=== PATIENT | female | born 1985 | race Hispanic/Latino ===

== ENCOUNTER 2016-11-10 19:05 | Emergency (ER) | payer SELFPAY ==
[~2016-11-10] VITALS: Ht 154.9 cm; Wt 79.4 kg
[~2016-11-10 19:05] MED LIST: ALBU8.5H4 IH; AMOX500C2 PO; ANTI-DEPRESSANT; CEPH500C PO; CIPR-225 PO; FLUO10CA19 PO; HYOS0.1216 PO; HYOS0.1283 SL; METR500T PO; MYLANTA; NITR-65 PO; ONDA-42 SL; ONDA4TAB8 PO; PHEN200T27 PO; PRD20T PO; PREN1TAB39; SULF1TAB38 PO; TYLENOL
[2016-11-10 19:30] LABS: BILIRUBIN,URINE NEGATIVE (NEGATIVE); KETONES,URINE NEGATIVE (NEGATIVE); LEUKOCYTE ESTERASE ,URINE 1+ (NEGATIVE); NITRITE,URINE NEGATIVE (NEGATIVE); PH,URINE 7 (5-9); PROTEIN,URINE NEGATIVE (NEGATIVE); UROBILINOGEN,URINE NORMAL (NORMAL)
[2016-11-10 19:38] LABS: WBC,URINE 0-2 /HPF
--- NOTE | 2016-11-10 19:51 | ED GU-Female ---
General Chief Complaint: -Female Stated Complaint: ABDOMINAL PAIN Nursing Triage Note: c/o lower abdominal pain, possible uti sx. Nursing Sepsis Screen: No Definite Risk Source: patient Exam Limitations: no limitations History of Present Illness Time seen by provider: 19:51 Initial Comments Vlk-wfwb-swz female patient presents to the emergency department with complaints of lower abdominal pain radiating into the bilateral back. Patient reports worse with standing up from a sitting position. Worse with defecation. States she thought maybe she had a urinary tract infection. When defecating patient feels like "my intestines are going to fall out." Denies bowel or bladder incontinence. Timing/Duration: this afternoon, getting worse Severity/Quality: aching, stabbing Location: suprapubic Radiation: RLQ, LLQ, back, right flank, left flank Activities at Onset: none Prior Genitourinary Problems: none Sexual Deseret History: less than 2 months ago, single partner Modifying Factors: Worsens With Movement, Worsens With Palpation Allergies and Home Medications Allergies Coded Allergies: morphine (Unverified Allergy, Mild, ITCHING, 10/09/08) Home Medications Ondansetron 8 Mg Tab.rapdis, 8 MG PO Q6H PRN for NAUSEA/VOMITING-1ST LINE, #10 Ref 0 Prescribed by: ALCIDES DIAZ on 11/10/16 3476 Constitutional: No chills, No fever, No malaise EENTM: no symptoms reported Respiratory: No cough, No phlegm, No short of breath Cardiovascular: No chest pain, No palpitations Gastrointestinal: see HPI, abdominal pain, No constipation, No diarrhea, nausea , No vomiting Genitourinary: see HPI, denies burning, denies dysuria, denies frequency, flank pain, denies hematuria, pain : No Musculoskeletal: see HPI, back pain Skin: no symptoms reported Psychiatric/Neurological: Denies Numbness, Denies Paresthesia, Denies Tingling , Denies Weakness Endocrine: No Symptoms Reported All Other Systemes Reviewed Negative Unless Noted: Yes (Negative excepted noted.) Past Hyoxzpp-Rutnfi-Ovosoy Hx Patient Social History Alcohol Use: Denies Use Recreational Drug Use: No Smoking Status: Never a Smoker 2nd Hand Smoke Exposure: No Recent Foreign Travel: No Contact w/Someone Who Travel: No Recent Infectious Disease Expo: No Recent Hopitalizations: No Immunizations Up To Date Tetanus Booster (TDap): Unknown Seasonal Allergies Seasonal Allergies: No Surgeries History of Surgeries: Yes (GALLBLADDER 2002) Surgeries: Gallbladder, Tubal Ligation Respiratory History of Respiratory Disorde: Yes Respiratory Disorders: Asthma Cardiovascular History of Cardiac Disorders: No Neurological History of Neurological Disord: No Reproductive System : No Hx : 7 Hx Para: 7 Hx Total # of Abortions (Spona: 0 Hx Reproductive Disorders: No Female Reproductive Disorders: Denies 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 Genitourinary History of Genitourinary Disor: Yes Genitourinary Disorders: UTI-Chronic Gastrointestinal History of Gastrointestinal Di: Yes Gastrointestinal Disorders: Gastroesophageal Reflux, Hemorrhoids Musculoskeletal History of Musculoskeletal Dis: No Endocrine History of Endocrine Disorders: No HEENT History of HEENT Disorders: No Cancer History of Cancer: No Psychosocial History of Psychiatric Problem: No Integumentary History of Skin or Integumenta: No Blood Transfusions History of Blood Disorders: No Reviewed Nursing Assessment Reviewed/Agree w Nursing PMH: Yes Family Medical History Significant Family History: No Pertinent Family Hx Physical Exam Vital Signs Capillary Refill : Less Than 3 Seconds General Appearance: WD/WN, no apparent distress HEENT: PERRL/EOMI, pharynx normal Neck: supple, normal inspection Cardiovascular: normal peripheral pulses, regular rate, rhythm, no edema, no murmur Respiratory: chest non-tender, lungs clear, normal breath sounds, no respiratory distress, no accessory muscle use Gastrointestinal: normal bowel sounds, soft, no organomegaly, no pulsatile mass , No distended, guarding (suprapubic, BLQ, bilat flanks), No rebound, tenderness (suprapubic, BLQ, and bilat flanks), No hernia, No mass Back: normal inspection, no CVA tenderness, no vertebral tenderness, No decreased range of motion, muscle spasm (low back muscle spasm with ttp) Extremities: normal inspection, no calf tenderness, normal capillary refill Neurologic/Psychiatric: no motor/sensory deficits, alert, normal mood/affect, oriented x 3 Skin: normal color, warm/dry Progress/Results/Core Measures Results/Orders Lab Results My Orders Vital Signs/I&O Blood Pressure Mean: 93 Point of Care Testing Urine -Bedside: Negative Diagnostic Imaging Diagonstic Imaging: CT Plain Films/CT/US/NM/MRI: abdomen, pelvis Comments FINDINGS: Unenhanced images of the liver and spleen reveal no focal abnormality. The gallbladder is surgically absent. There is no evidence of pancreatic or adrenal gland lesion. Evaluation of the kidneys is limited without intravenous contrast; however, no renal mass or hydronephrosis is identified. There are prominent mesenteric lymph nodes which are most pronounced in the right lower quadrant. These are slightly more conspicuous than on the previous study. There is mild increased density noted in the presacral fat. This could be due to mild edema or inflammation. The endometrial canal appears prominent and may be fluid-filled. Probable cyst is again identified in the left labia measuring 3.9 x 2.5 cm. There is no other organized fluid collection to indicate an abscess. IMPRESSION: Findings are similar to the previous study. Prominent mesenteric lymph nodes may indicate mesenteric adenitis. There is probable edema or fluid within the endometrial canal with persistent cyst in the left labia, as noted on the previous study. Dictated by: Dictated on workstation # [id number] Reviewed: Reviewed by Me (radiology report reviewed by me) Departure Communication (Admissions) Progress Notes All laboratory findings and diagnostic study findings discussed with the patient. Patient refuses pelvic exam during this visit. States she will follow -up with her bean dumper for pelvic exam. I stressed the importance of following through with having a pelvic exam and formal Pap smear done within the next 7-10 days. Patient voices understanding and states she will call tomorrow morning for appointment time. Plan for discharge to home. Patient given prescription for Zofran. All return precautions were discussed with the patient as described in the discharge instructions of this report. Patient voices understanding and agrees with the treatment plan. Impression Impression: Primary Impression: Mesenteric adenitis Additional Impressions: Strain of muscle, fascia and tendon of abdomen, initial encounter Epidermoid cyst of labia majora Disposition: 01 HOME, SELF-CARE Condition: Improved Departure-Patient Inst. Decision time for Depature: 21:52 Referrals: [facility] (PCP/Family) Primary Care Physician Patient Instructions: Abdominal Muscle Strain (DC), Mesenteric Lymphadenitis Add. Discharge Instructions: All discharge instructions reviewed with patient and/or family. Voiced understanding. Medications as instructed. Tylenol extra strength over-the- counter as directed for pain. Ibuprofen 800 mg by mouth every 8 hours as needed for pain. Drink plenty of fluids. Follow-up with your primary care physician within the next 7-10 days for recheck and for pelvic exam/Pap smear. Call tomorrow morning for appointment time. Return to the emergency department immediately for worsened pain, fever, vomiting, rectal bleeding, abdominal swelling, vaginal bleeding with greater than 2 pads per hour for greater than 2 hours, vaginal discharge, numbness, weakness, bowel incontinence, bladder incontinence, inability to urinate, or any other concerns. Scripts Ondansetron (Ondansetron Odt) 8 Mg Tab.rapdis 8 MG PO Q6H Y for NAUSEA/VOMITING-1ST LINE, #10 TAB 0 Refills Prov: ALCIDES DIAZ 11/10/16 Work/School Note: Work Release Form Date Seen in the Emergency Department: Nov 10, 2016 Return to Work: Nov 12, 2016 ALCIDES DIAZ Nov 10, 2016 19:51
[2016-11-10 20:17] LABS: BASOPHILS % (AUTO) 1 % (0-10); EOSINOPHILS # (AUTO) 0.1 10^3/uL (0.0-0.3); EOSINOPHILS % (AUTO) 1 % (0-10); LYMPHOCYTES # (AUTO) 2.1 X 10^3 (1.0-4.0); LYMPHOCYTES % (AUTO) 33 % (12-44); MEAN CORPUSCULAR HEMOGLOBIN 28 PG (25-34); MEAN CORPUSCULAR HGB CONC 33 G/DL (32-36); MEAN CORPUSCULAR VOLUME 84 FL (80-99); MONOCYTES # (AUTO) 0.4 X 10^3 (0.0-1.0); MONOCYTES % (AUTO) 7 % (0-12); NEUTROPHILS # (AUTO) 3.9 X 10^3 (1.8-7.8); NEUTROPHILS % (AUTO) 59 % (42-75); PLATELET COUNT 251 10^3/uL (130-400); RED BLOOD COUNT 4.23 10^6/uL (4.35-5.85); RED CELL DISTRIBUTION WIDTH 13.8 % (10.0-14.5); WHITE BLOOD COUNT 6.5 10^3/uL (4.3-11.0)
[2016-11-10 20:38] LABS: ALANINE AMINOTRANSFERASE 19 U/L (0-55); ALBUMIN 3.9 GM/DL (3.2-4.5); ANION GAP 8 MMOL/L (5-14); ASPARTATE AMINO TRANSFERASE 18 U/L (5-34); BILIRUBIN,TOTAL 0.3 MG/DL (0.1-1.0); BLOOD UREA NITROGEN 10 MG/DL (7-18); BUN/CREATININE RATIO 15; CALCIUM 8.9 MG/DL (8.5-10.1); CARBON DIOXIDE 27 MMOL/L (21-32); CHLORIDE 103 MMOL/L (98-107); CREATININE SERUM 0.66 MG/DL (0.60-1.30); GFR ESTIMATED > 60; GLUCOSE 95 MG/DL (70-105); LIPASE 45 U/L (8-78); POTASSIUM 3.7 MMOL/L (3.6-5.0); SODIUM 138 MMOL/L (135-145); TOTAL PROTEIN 7.1 GM/DL (6.4-8.2)
--- NOTE | 2016-11-10 21:00 | Diagnostic Imaging Report ---
PROCEDURE: CT abdomen and pelvis without contrast. TECHNIQUE: Multiple contiguous axial images were obtained through the abdomen and pelvis without the use of intravenous contrast. INDICATION: Lower abdominal pain. COMPARISON is made to study of 07/20/2015. FINDINGS: Unenhanced images of the liver and spleen reveal no focal abnormality. The gallbladder is surgically absent. There is no evidence of pancreatic or adrenal gland lesion. Evaluation of the kidneys is limited without intravenous contrast; however, no renal mass or hydronephrosis is identified. There are prominent mesenteric lymph nodes which are most pronounced in the right lower quadrant. These are slightly more conspicuous than on the previous study. There is mild increased density noted in the presacral fat. This could be due to mild edema or inflammation. The endometrial canal appears prominent and may be fluid-filled. Probable cyst is again identified in the left labia measuring 3.9 x 2.5 cm. There is no other organized fluid collection to indicate an abscess. IMPRESSION: Findings are similar to the previous study. Prominent mesenteric lymph nodes may indicate mesenteric adenitis. There is probable edema or fluid within the endometrial canal with persistent cyst in the left labia, as noted on the previous study. Dictated by: Dictated on workstation # [id number]
[2016-11-10] MEDS ORDERED: ONDA8TAB13 PO (21:53)
[2016-11-10 21:59] VITALS: BP 114/61
--- OUTSIDE RECORDS SUMMARY | 2016-11-11 04:22 | XMS REPORT ---
Author Author JOEY PETERSON Organization [employer] Address Unknown Phone Unavailable Care Team Providers Care Apron Worker Name Role Phone JOEY PETERSON CP Unavailable Allergies No Known Allergies Problems Problem Type Condition Code Onset Dates Condition Status Problem Unspecified asthma J45.909 Active Problem Gastritis, unspecified, without bleeding K29.70 Active Problem Dermatophytosis of foot B35.3 Active Problem Chest pain R07.9 Active Problem Anxiety associated with depression F41.8 Active Problem Routine health maintenance Z00.00 Active Problem Post-traumatic stress disorder, chronic F43.12 Active Problem Pruritus ani L29.0 Active Problem Enlarged lymph node in neck R59.0 Active Problem Bipolar II disorder F31.81 Active Problem Claustrophobia F40.240 Active Problem Cyst of Bartholin gland or duct N75.0 Active Assessment Abnormal ultrasound of breast R92.8 Active Problem Unspecified hemorrhoids K64.9 Active Assessment Mammogram reminder not needed forever Z53.8 Active Problem Nonspecific abdominal pain R10.9 Active Medications No Known Medications Results No Known Results Summary Purpose [employer] Submission
--- OUTSIDE RECORDS SUMMARY | 2016-11-11 04:22 | XMS REPORT ---
Author Author NICOLETTE NEELY [facility] e[employer] Address Unknown Phone Unavailable Care Team Providers Care Valet Runner Name Role Phone NICOLETTE NEELY CP Unavailable Allergies, Adverse Reactions, Alerts Substance Reaction Event Type Morphine Info Not Available Drug Allergy Problems Problem Type Condition Code Onset Dates Condition Status Problem Screening for malignant neoplasm of the cervix V76.2 Active Problem Abdominal pain, unspecified site 789.00 Active Problem Unspecified hemorrhoids without mention of complication 455.6 Active Problem Post-traumatic stress disorder, chronic F43.12 Active Problem Pruritus ani 698.0 Active Problem Bipolar II disorder F31.81 Active Problem Encounter for long-term (current) use of other medications V58.69 Active Problem Asthma, unspecified, unspecified status 493.90 Active Problem Unspecified gastritis and gastroduodenitis without mention of hemorrhage 535.50 Active Problem Dermatophytosis of foot 110.4 Active Assessment Post-traumatic stress disorder, chronic F43.12 Active Problem Unspecified breast screening V76.10 Active Problem Routine gynecological examination V72.31 Active Assessment Bipolar II disorder F31.81 Active Problem Special screening examination, human papillomavirus [HPV] V73.81 Active Problem Cyst of Bartholin's gland 616.2 Active Problem Screening examination for venereal disease V74.5 Active Medications Medication Code System Code Instructions Start Date End Date Status Dosage Effexor XR [facility] [address]-88 37.5 MG Orally Once a day Jan 04, 2015 1 capsule with food Procedures Procedure Coding System Code Date Psych diagnostic evaluation w/medical services, established patient CPT-4 40117 Jan 04, 2015 Vital Signs Date/Time: Jan 04, 2015 Temperature 98.8 F Weight 175.8 lbs Height 62 in BMI 32.15 Index Blood Pressure Diastolic 78 mmHg Blood Pressure Systolic 104 mmHg Cardiac Monitoring Heart Rate 100 bpm Results No Known Results Summary Purpose [employer] Submission
--- OUTSIDE RECORDS SUMMARY | 2016-11-11 04:22 | XMS REPORT ---
Author Author NICHOLAS JOEY Organization [facility] [place] Address [address] [place] [address] Care Team Providers Care Mathematics Faculty Member Name Role Phone PETERSONJOEY Rice Unavailable PROBLEMS Type Condition ICD9-CM Code [id number] Code Onset Dates Condition Status SNOMED Code Problem Bipolar II disorder F31.81 Active 53045424 Problem Routine health maintenance Z00.00 Active 586157050 Problem Enlarged lymph node in neck R59.0 Active 61637277 Problem Abnormal uterine bleeding N93.9 Active 76542700274840 Problem Irregular periods/menstrual cycles N92.6 Active 30176000 Problem Chest pain R07.9 Active 15662262 Problem Anxiety associated with depression F41.8 Active 871334056 Problem H. pylori infection A04.8 Active 8261814 Problem Tonsillar hypertrophy J35.1 Active 18283388 Problem Nonspecific abdominal pain R10.9 Active 248055125 Problem Unspecified asthma J45.909 Active 132988780 Problem Cyst of Bartholin gland or duct N75.0 Active 60267598 Problem Dermatophytosis of foot B35.3 Active 2491246 Problem Pruritus ani L29.0 Active 91378206 Problem Unspecified hemorrhoids K64.9 Active 23874851 Problem Elevated hemoglobin A1c measurement R73.09 Active 874183677 Problem Gastritis, unspecified, without bleeding K29.70 Active 3610127 Problem Claustrophobia F40.240 Active 47203513 Problem Post-traumatic stress disorder, chronic F43.12 Active 06117756 ALLERGIES No Known Allergies SOCIAL HISTORY No smoking Hx information available PLAN OF CARE VITAL SIGNS MEDICATIONS Unknown Medications RESULTS Name Result Date Reference Range LIPID PANEL 2016-03-20 Cholesterol, Total 193 100-199 Triglycerides 301 0-149 HDL Cholesterol 39 >39 VLDL Cholesterol Yuri 60 5-40 LDL Cholesterol Calc 94 0-99 Comment: PROCEDURES Procedure Date Ordered Related Diagnosis Body Site LIPID PANEL Mar 20, 2016 VENIPUNCT, ROUTINE* Mar 20, 2016 IMMUNIZATIONS No Known Immunizations
--- OUTSIDE RECORDS SUMMARY | 2016-11-11 04:22 | XMS REPORT ---
Author Author ELLIOT ROSENBAUM [facility] [employer] Address Unknown Phone Unavailable Care Team Providers Care Stator Winder Name Role Phone ELLIOT ROSENBAUM CP Unavailable Allergies No Known Allergies Problems [...] Active Problem Bipolar II disorder F31.81 Active Assessment Abnormal ultrasound of breast R92.8 Active Problem Cyst of Bartholin gland or duct N75.0 Active Problem Unspecified hemorrhoids K64.9 Active Problem Nonspecific abdominal pain R10.9 Active Medications No Known Medications Results No Known Results Summary Purpose [employer] Submission
--- OUTSIDE RECORDS SUMMARY | 2016-11-11 04:22 | XMS REPORT ---
Author Author CASEY PATEL Organization [employer] Address Unknown Phone Unavailable Care Team Providers Care Site Controller Name Role Phone CASEY PATEL CP Unavailable Allergies No Known Allergies Problems [...] Problem Bipolar II disorder F31.81 Active Assessment Claustrophobia F40.240 Active Problem Claustrophobia F40.240 Active Problem Cyst of Bartholin gland or duct N75.0 Active Assessment Post-traumatic stress disorder, chronic F43.12 Active Problem Unspecified hemorrhoids K64.9 Active Assessment Bipolar II disorder F31.81 Active Problem Nonspecific abdominal pain R10.9 Active Medications No Known Medications Procedures Procedure Coding System Code Date Psychotherapy, patient &/family, 45 minutes, established patient CPT-4 30493 October 09, 2015 Results No Known Results Summary Purpose [employer] Submission
--- OUTSIDE RECORDS SUMMARY | 2016-11-11 04:22 | XMS REPORT ---
Author Author NICOLETTE NEELY [facility] [employer] Address Unknown Phone Unavailable Care Team Providers Care Stores Assistant Name Role Phone NICOLETTE NEELY CP Unavailable Allergies No Known Allergies Problems [...] Active Problem Dermatophytosis of foot 110.4 Active Problem Unspecified breast screening V76.10 Active Problem Routine gynecological examination V72.31 Active Problem Special screening examination, human papillomavirus [HPV] V73.81 Active Problem Cyst of Bartholin's gland 616.2 Active Problem Screening examination for venereal disease V74.5 Active Medications Medication Code System Code Instructions Start Date End Date Status Dosage Effexor XR [facility] [address]-42 37.5 MG Orally Once a day Jan 04, 2015 1 capsule with food Results No Known Results Summary Purpose [employer] Submission
--- OUTSIDE RECORDS SUMMARY | 2016-11-11 04:23 | XMS REPORT ---
Author Author JOEY PETERSON Organization [facility] Address [address] [place] [address] Care Team Providers Care Optimization Manager Name Role Phone JOEY PETERSON Unavailable PROBLEMS Type Condition ICD9-CM Code HUL43-[place] Code Onset Dates Condition Status SNOMED Code Problem Bipolar II disorder F31.81 Active 56055776 Problem Routine health maintenance Z00.00 Active 922614597 Problem Enlarged lymph node in neck R59.0 Active 06093790 Problem Abnormal uterine bleeding N93.9 Active 81956722770888 Problem Irregular periods/menstrual cycles N92.6 Active 73858620 Problem Chest pain R07.9 Active 15488739 Problem Anxiety associated with depression F41.8 Active 876563743 Problem H. pylori infection A04.8 Active 9270234 Problem Tonsillar hypertrophy J35.1 Active 62775351 Problem Nonspecific abdominal pain R10.9 Active 841778931 Problem Unspecified asthma J45.909 Active 265158760 Problem Cyst of Bartholin gland or duct N75.0 Active 54619243 Problem Dermatophytosis of foot B35.3 Active 4233415 Problem Pruritus ani L29.0 Active 14374593 Problem Unspecified hemorrhoids K64.9 Active 33393105 Problem Elevated hemoglobin A1c measurement R73.09 Active 084622173 Problem Gastritis, unspecified, without bleeding K29.70 Active 0474465 Problem Claustrophobia F40.240 Active 40520353 Problem Post-traumatic stress disorder, chronic F43.12 Active 22848208 ALLERGIES No Known Allergies SOCIAL HISTORY No smoking Hx information available PLAN OF CARE VITAL SIGNS MEDICATIONS Medication Instructions Dosage Frequency Start Date End Date Duration Status Fenofibrate 54 MG Orally Once a day 1 tablet with a meal 24h Mar, 90 days Active RESULTS No Results PROCEDURES No Known procedures IMMUNIZATIONS No Known Immunizations
--- OUTSIDE RECORDS SUMMARY | 2016-11-11 04:23 | XMS REPORT ---
Author Author JOEY PETERSON Organization [facility] Address [address] [place] [address] Care Team Providers Care Sheriff Officer Name Role Phone JOEY PETERSON Unavailable PROBLEMS Type Condition ICD9-CM Code [id number] Code Onset Dates Condition Status SNOMED Code Problem Bipolar II disorder F31.81 Active 96472664 Problem Anxiety associated with depression F41.8 Active 133093582 Problem Enlarged lymph node in neck R59.0 Active 80418471 Problem Abnormal uterine bleeding N93.9 Active 88424057584646 Problem Irregular periods/menstrual cycles N92.6 Active 30065569 Problem Routine health maintenance Z00.00 Active 399647092 Problem Chest pain R07.9 Active 99379554 Problem Tonsillar hypertrophy J35.1 Active 49664136 Problem H. pylori infection A04.8 Active 0458706 Problem Cyst of Bartholin gland or duct N75.0 Active 50625370 Problem Unspecified hemorrhoids K64.9 Active 47468710 Problem Elevated hemoglobin A1c measurement R73.09 Active 794365278 Problem Claustrophobia F40.240 Active 80965383 Problem Dermatophytosis of foot B35.3 Active 6908835 Problem Gastritis, unspecified, without bleeding K29.70 Active 8818041 Problem Nonspecific abdominal pain R10.9 Active 523107566 Problem Pruritus ani L29.0 Active 98596407 Problem Unspecified asthma J45.909 Active 261997120 Problem Post-traumatic stress disorder, chronic F43.12 Active 58172296 ALLERGIES Substance Reaction Event Type Date Status Morphine Unknown Drug Allergy Feb, Active SOCIAL HISTORY No smoking Hx information available PLAN OF CARE Activity Details Follow Up 4 Weeks Reason:f/u VITAL SIGNS Height 62 in 2016-02-28 Weight 182.2 lbs 2016-02-28 Temperature 97.7 degrees Fahrenheit 2016-02-28 Heart Rate 77 bpm 2016-02-28 Respiratory Rate 18 2016-02-28 BMI 33.32 kg/m2 2016-02-28 Blood pressure systolic 128 mmHg 2016-02-28 Blood pressure diastolic 82 mmHg 2016-02-28 MEDICATIONS Medication Instructions Dosage Frequency Start Date End Date Duration Status Omeprazole 20 mg Orally 2 times a day 1 capsules 12h Feb, Active Clarithromycin 500 MG Orally every 12 hrs 1 tablet 12h Feb,Feb 14 days Active Amoxicillin 500 MG Orally every 12 hrs 2 capsules 12h Feb,Feb 14 days Active RESULTS Name Result Date Reference Range H PYLORI (IN HOUSE) 2016-02-28 H. PYLORI positive Control + Lot # [id number] Exp date 12/29 PROCEDURES Procedure Date Ordered Related Diagnosis Body Site IMMUNOASSAY,INFECTIOUS AGENT Feb 28, 2016 Office Visit, Est Pt., Level 3 Feb 28, 2016 IMMUNIZATIONS No Known Immunizations
--- OUTSIDE RECORDS SUMMARY | 2016-11-11 04:23 | XMS REPORT ---
Author Author CARRINGTON FLORES Organization [employer] Address Unknown Phone Unavailable Care Team Providers Care Clinical Informatics Spec Name Role Phone CARRINGTON FLORES Unavailable Allergies, Adverse Reactions, Alerts Substance Reaction Event Type Morphine Info Not Available Drug Allergy Problems Problem Type Condition Code Onset Dates Condition Status Assessment Breast pain N64.4 Active Problem Unspecified hemorrhoids K64.9 Active Problem Cyst of Bartholin gland or duct N75.0 Active Assessment Lymph node enlargement R59.9 Active Assessment Rectal bleeding K62.5 Active Problem Post-traumatic stress disorder, chronic F43.12 Active Problem Pruritus ani L29.0 Active Problem Bipolar II disorder F31.81 Active Problem Unspecified asthma J45.909 Active Problem Nonspecific abdominal pain R10.9 Active Problem Gastritis, unspecified, without bleeding K29.70 Active Problem Dermatophytosis of foot B35.3 Active Medications Medication Code System Code Instructions Start Date End Date Status Dosage Effexor XR [facility] [address]-91 37.5 MG Orally Once a day Jan 04, 2015 1 capsule with food Procedures Procedure Coding System Code Date COMPREHEN METABOLIC PANEL CPT-4 42677 Apr 03, 2015 Office Visit, Est Pt., Level 3 CPT-4 34122 Apr 03, 2015 COMPLETE CBC W/AUTO DIFF WBC CPT-4 64779 Apr 03, 2015 VENIPUNCT, ROUTINE* CPT-4 93190 Apr 03, 2015 Vital Signs Date/Time: Apr 03, 2015 Temperature 98.0 F Weight 172.5 lbs Height 62 in BMI 31.55 Index Blood Pressure Diastolic 76 mmHg Blood Pressure Systolic 110 mmHg Cardiac Monitoring Heart Rate 72 bpm Results Name Result Date Reference Range Unit Abnormality Flag ROUTINE VENIPUNCTURE Summary Purpose [employer]ClinicalWorks Submission
--- OUTSIDE RECORDS SUMMARY | 2016-11-11 04:23 | XMS REPORT ---
Author Author CASEY PATEL Organization [employer] Address Unknown Phone Unavailable Care Team Providers Care Applications Support Analyst Name Role Phone CASEY PATEL CP Unavailable [...] patient &/family, 45 minutes, established patient CPT-4 83486 September 25, 2015 Results No Known Results Summary Purpose [employer] Submission
--- OUTSIDE RECORDS SUMMARY | 2016-11-11 04:23 | XMS REPORT ---
Author Author JEFFREY BENNETT eClinicalWorks Address Unknown Phone Unavailable Care Team Providers Care Network Technology Instructor Name Role Phone JEFFREY BENNETT CP Unavailable Allergies, Adverse Reactions, Alerts Substance Reaction Event Type Morphine Info Not Available Drug Allergy Problems Problem Type Condition Code Onset Dates Condition Status Assessment Dental examination Z01.20 Active Problem Unspecified hemorrhoids K64.9 Active Problem Cyst of Bartholin gland or duct N75.0 Active Assessment Dental caries K02.9 Active Problem Post-traumatic stress disorder, chronic F43.12 Active Problem Pruritus ani L29.0 Active Problem Bipolar II disorder F31.81 Active Problem Unspecified asthma J45.909 Active Problem Nonspecific abdominal pain R10.9 Active Problem Gastritis, unspecified, without bleeding K29.70 Active Problem Dermatophytosis of foot B35.3 Active Medications No Known Medications Procedures Procedure Coding System Code Date INTRAORL-PERIAPICAL 1 FILM 74751 CPT-4 D0220 Apr 05, 2015 EXTRAC ERUPTED TOOTH/EXPOSED ROOT CPT-4 D7140 Apr 05, 2015 LTD ORAL EVALUATION - PROBLEM FOCUS CPT-4 D0140 Apr 05, 2015 EXTRAC ERUPTED TOOTH/EXPOSED ROOT CPT-4 D7140 Apr 05, 2015 Vital Signs Date/Time: Apr 05, 2015 Blood Pressure Diastolic 81 mmHg Blood Pressure Systolic 114 mmHg Height 62 in Results No Known Results Summary Purpose eClinicalWorks Submission
--- OUTSIDE RECORDS SUMMARY | 2016-11-11 04:23 | XMS REPORT ---
Author Author MAYO JAIME [facility] eClinicalWorks Address Unknown Phone Unavailable Care Team Providers Care Master Automotive Technician Name Role Phone MAYO JAIME CP Unavailable Allergies No Known Allergies Problems Problem Type Condition ICD-9 Code Onset Dates Condition Status Problem Special screening examination, human papillomavirus [HPV] V73.81 Active Problem Screening for malignant neoplasm of the cervix V76.2 Active Problem Screening examination for venereal disease V74.5 Active Problem Unspecified gastritis and gastroduodenitis without mention of hemorrhage 535.50 Active Problem Dermatophytosis of foot 110.4 Active Problem Pruritus ani 698.0 Active Problem Abdominal pain, unspecified site 789.00 Active Problem Unspecified hemorrhoids without mention of complication 455.6 Active Problem Encounter for long-term (current) use of other medications V58.69 Active Problem Asthma, unspecified, unspecified status 493.90 Active Assessment Dental examination V72.2 Active Problem Cyst of Bartholin's gland 616.2 Active Problem Unspecified breast screening V76.10 Active Problem Routine gynecological examination V72.31 Active Medications No Known Medications Procedures Procedure Coding System Code Date Billing Notes on claim CPT-4 EC109 August 08, 2014 Results No Known Results Summary Purpose eClinicalWorks Submission
--- OUTSIDE RECORDS SUMMARY | 2016-11-11 04:23 | XMS REPORT ---
Author Author MAYO JAIME [facility] eClinicalWorks Address Unknown Phone Unavailable Care Team Providers Care Cigar Packer And Picker Name Role Phone MAYO JAIME CP Unavailable Allergies, Adverse Reactions, Alerts Substance [...] N75.0 Active Problem Unspecified hemorrhoids K64.9 Active Assessment Dental examination Z01.20 Active Problem Nonspecific abdominal pain R10.9 Active Medications No Known Medications Procedures Procedure Coding System Code Date Dental no charge CPT-4 D0099 September 30, 2015 Results No Known Results Summary Purpose eClinicalWorks Submission
--- OUTSIDE RECORDS SUMMARY | 2016-11-11 04:23 | XMS REPORT ---
Author Author JOEY PETERSON Organization [facility] Address [address] [place] [address] Care Team Providers Care Anthropology Professor Name Role Phone NICHOLAS JOEY Unavailable PROBLEMS Type Condition ICD9-CM Code ENM36-LU Code Onset Dates Condition Status SNOMED Code Problem Post-traumatic stress disorder, chronic F43.12 Active 70189228 Problem Enlarged lymph node in neck R59.0 Active 27943665 Problem Bipolar II disorder F31.81 Active 17416953 Problem Irregular periods/menstrual cycles N92.6 Active 45694108 Problem Tonsillar hypertrophy J35.1 Active 67547672 Problem Chest pain R07.9 Active 75043645 Problem Anxiety associated with depression F41.8 Active 014469526 Problem H. pylori infection A04.8 Active 1597554 Problem Routine health maintenance Z00.00 Active 129454508 Problem Claustrophobia F40.240 Active 26234996 Problem Cyst of Bartholin gland or duct N75.0 Active 08927117 Problem Elevated hemoglobin A1c measurement R73.09 Active 804772698 Problem Unspecified asthma J45.909 Active 045057191 Problem Dermatophytosis of foot B35.3 Active 6631433 Problem Unspecified hemorrhoids K64.9 Active 74442216 Problem Gastritis, unspecified, without bleeding K29.70 Active 9634481 Problem Nonspecific abdominal pain R10.9 Active 692278778 Problem Pruritus ani L29.0 Active 52927875 ALLERGIES Unknown Allergies SOCIAL HISTORY No smoking Hx information available PLAN OF CARE VITAL SIGNS MEDICATIONS Medication Instructions Dosage Frequency Start Date End Date Duration Status Levaquin 250 MG Orally twice a day 1 tablet 12h Feb, 2 Mar, 2016 14 days Active Omeprazole 20 mg Orally 2 times a day 1 capsules 12h 16 Feb, 2016 Active RESULTS No Results PROCEDURES No Known procedures IMMUNIZATIONS No Known Immunizations
--- OUTSIDE RECORDS SUMMARY | 2016-11-11 04:23 | XMS REPORT ---
Author Author CASEY PATEL [facility] eClinicalWorks Address Unknown Phone Unavailable Care Team Providers Care Third Mate Name Role Phone CASEY PATEL CP Unavailable [...] examination for venereal disease V74.5 Active Medications No Known Medications Procedures Procedure Coding System Code Date Psychotherapy, patient &/family, 45 minutes, established patient CPT-4 89061 Jan 08, 2015 Results No Known Results Summary Purpose eClinicalWorks Submission
--- OUTSIDE RECORDS SUMMARY | 2016-11-11 04:23 | XMS REPORT ---
Author Author CASEY PATEL [facility] eClinicalWorks Address Unknown Phone Unavailable Care Team Providers Care Back Shoe Cutter Name Role Phone CASEY PATEL CP Unavailable [...] patient &/family, 45 minutes, established patient CPT-4 32181 Jan 02, 2015 Results No Known Results Summary Purpose eClinicalWorks Submission
== END 2016-11-10 21:58 | disposition home or self-care (01) ==
LOC: EDUNIT# 19:05 → ER 19:09
DX: S39.011A Strain of muscle, fascia and tendon of abdomen, initial encounter (principal); I88.0 Nonspecific mesenteric lymphadenitis; N90.7 Vulvar cyst; J45.909 Unspecified asthma, uncomplicated; K21.9 Gastro-esophageal reflux disease without esophagitis; Z87.440 Personal history of urinary (tract) infections; Z87.19 Personal history of other diseases of the digestive system; Z98.51 Tubal ligation status; X58.XXXA Exposure to other specified factors, initial encounter
CPT/HCPCS: 36415; 74176; 80053; 81000; 83690; 84703; 85025

== ENCOUNTER 2017-02-07 17:08 | Emergency (ER) | payer SELFPAY ==
[~2017-02-07] VITALS: Ht 154.9 cm; Wt 79.4 kg
[~2017-02-07 17:08] MED LIST changes: +ONDA8TAB13 PO
--- OUTSIDE RECORDS SUMMARY | 2017-02-07 17:14 | XMS REPORT ---
Author Author JOEY PETERSON Organization [facility] Address [address] [place] [address] Care Team Providers Care Concrete Vault Maker Name Role Phone JOEY PETERSON Unavailable PROBLEMS Type Condition ICD9-CM Code IHR26-CL Code Onset Dates Condition Status SNOMED Code Problem Anxiety associated with depression F41.8 Active 587566263 Problem Routine health maintenance Z00.00 Active 395879456 Problem Enlarged lymph node in neck R59.0 Active 69701583 Problem Hypertriglyceridemia E78.1 Active 415973773 Problem Cyst of Bartholin gland or duct N75.0 Active 46635391 Problem GERD without esophagitis K21.9 Active 409749818 Problem Elevated hemoglobin A1c measurement R73.09 Active 504886513 Problem H. pylori infection A04.8 Active 7048794 Problem Tonsillar hypertrophy J35.1 Active 04034719 Problem Abnormal uterine bleeding N93.9 Active 23772818533807 Problem Irregular periods/menstrual cycles N92.6 Active 90843325 Problem Unspecified asthma J45.909 Active 668806364 Problem Claustrophobia F40.240 Active 36321697 Problem Dermatophytosis of foot B35.3 Active 3452976 Problem Nonspecific abdominal pain R10.9 Active 607567906 Problem Gastritis, unspecified, without bleeding K29.70 Active 7481720 Problem Post-traumatic stress disorder, chronic F43.12 Active 37746281 Problem Pruritus ani L29.0 Active 12839347 Problem Bipolar II disorder F31.81 Active 57662798 Problem Unspecified hemorrhoids K64.9 Active 12625691 Problem Chest pain R07.9 Active 21511004 ALLERGIES No Information SOCIAL HISTORY Never Assessed PLAN OF CARE Activity Details Follow Up 3 Months, prn Reason:CHM VITAL SIGNS Height 62 in 2016-07-23 Weight 178.6 lbs 2016-07-23 Temperature 97.0 degrees Fahrenheit 2016-07-23 Heart Rate 78 bpm 2016-07-23 Respiratory Rate 20 2016-07-23 BMI 32.66 kg/m2 2016-07-23 Blood pressure systolic 112 mmHg 2016-07-23 Blood pressure diastolic 76 mmHg 2016-07-23 MEDICATIONS Medication Instructions Dosage Frequency Start Date End Date Duration Status Ibuprofen 500ng Orally every 4-6 hours as needed 1 capsule Active Omeprazole 20 mg Orally 2 times a day 1 capsules 12h 16 Feb, 2016 Active Fenofibrate 54 MG Orally Once a day 1 tablet with a meal 24h Mar, 90 days Active RESULTS Name Result Date Reference Range UA LONG DIP (IN HOUSE) 2016-07-23 Lot # [id number] Exp date Clarity Clear Color DarkYellow Odor Yes GLU Negative MARINA Negative KET Negative SG 1.020 BLO Trace-intact pH 7.0 Protein 1+ URO 0.2 NIT Negative BEVERLY Negative Lot # Exp date THYROID ANALYZER 2016-07-23 TSH 1.740 0.450-4.500 A1C 2016-07-23 Hemoglobin A1c 5.9 4.8-5.6 CBC 2016-07-23 WBC 5.5 3.4-10.8 RBC 4.21 3.77-5.28 Hemoglobin 11.6 11.1-15.9 Hematocrit 34.7 34.0-46.6 MCV 82 79-97 MCH 27.6 26.6-33.0 MCHC 33.4 31.5-35.7 RDW 14.8 12.3-15.4 Platelets 282 150-379 Neutrophils 56 Lymphs 35 Monocytes 6 Eos 2 Basos 1 Neutrophils (Absolute) 3.1 1.4-7.0 Lymphs (Absolute) 1.9 0.7-3.1 Monocytes(Absolute) 0.3 0.1-0.9 Eos (Absolute) 0.1 0.0-0.4 Baso (Absolute) 0.0 0.0-0.2 Immature Granulocytes 0 Immature Grans (Abs) 0.0 0.0-0.1 CMP 2016-07-23 Glucose, Serum 98 65-99 BUN 10 6-20 Creatinine, Serum 0.40 0.57-1.00 eGFR If NonAfricn Am 138 >59 eGFR If Africn Am 159 >59 BUN/Creatinine Ratio 25 9-23 Sodium, Serum 140 134-144 Potassium, Serum 4.0 3.5-5.2 Chloride, Serum 101 96-106 Carbon Dioxide, Total 26 18-29 Calcium, Serum 9.0 8.7-10.2 Protein, Total, Serum 7.2 6.0-8.5 Albumin, Serum 4.0 3.5-5.5 Globulin, Total 3.2 1.5-4.5 A/G Ratio 1.3 1.2-2.2 Bilirubin, Total 0.2 0.0-1.2 Alkaline Phosphatase, S 68 39-117 AST (SGOT) 16 0-40 ALT (SGPT) 20 0-32 PROCEDURES Procedure Date Ordered Result Body Site COMPLETE CBC W/AUTO DIFF WBC July 23, 2016 GLYCATED HEMOGLOBIN TEST July 23, 2016 VENIPUNCT, ROUTINE* July 23, 2016 ASSAY THYROID STIM HORMONE July 23, 2016 COMPREHEN METABOLIC PANEL July 23, 2016 URINALYSIS, AUTO, W/O SCOPE July 23, 2016 IMMUNIZATIONS No Known Immunizations MEDICAL (GENERAL) HISTORY Type Description Date Medical History constipation Surgical History Gallbladder removal Surgical History Cyst removal Surgical History Tubal ligation 2010 Hospitalization History Surgeries Hospitalization History Suicide attempt 2008
[2017-02-07] MEDS ORDERED: D5 NS 1000 ML IV SOLUTION 1,000 ML IV ONE (17:42)
--- NOTE | 2017-02-07 17:49 | ED Abdominal Pain ---
General Chief Complaint: Abdominal/GI Problems Stated Complaint: STOMACH PAIN/DIARRHEA/DIZZINESS Source of Information: Patient, Family Exam Limitations: No Limitations (JUAQUIN STONE) History of Present Illness Time Seen By Provider: 17:38 Initial Comments Patient presents to ER by private conveyance with chief complaint that approximately 8 days ago she began experiencing copious watery nonbloody diarrhea. She also had some abdominal pain after eating anything. This will on for about 4 days she Began to get better but it did not. He does not matter what she ate it causes pain in her abdomen especially the right lower quadrant and then diarrhea. He says she had a bowel movement however she says the pain got better. She took some Imodium from [id number] and this helped slow the diarrhea so now is only intermittent. She still having the pain and sometimes nausea that accompanies right after eating. She has had her gallbladder removed surgically. She also has a history of a bilateral tubal ligation. She went to work today but because of the pain she was not able to stay at work so she came to the ER to get worked up. She's had some chills but no documented fever. She has not vomited yet. She says she's had problems in the past with her bowels having copious loose stools but denies irritable bowel or inflammatory bowel disease. She says she had a colonoscopy several years ago and was told everything was normal. She sees Pura Reyes but has not seen her recently. She denies any chest pain, shortness of breath, cough, dysuria, discharge. She also feels very tired all the time and weak for the past several days. She denies any sick contacts or recent travel outside of the [facility]. Last menstrual period started 5-6 days ago. She says it's stopped last night. (JUAQUIN STONE) Allergies and Home Medications Allergies Coded Allergies: morphine (Unverified Allergy, Mild, ITCHING, 10/09/08) Home Medications Ondansetron 8 Mg Tab.rapdis, 8 MG PO Q6H PRN for NAUSEA/VOMITING-1ST LINE, #10 Ref 0 Prescribed by: ALCIDES DIAZ on 11/10/16 3334 Review of Systems Constitutional: chills, No fever, malaise, weakness EENTM: No Blurred Vision, No Double Vision Respiratory: Denies Cough, Denies Shortness of Air Cardiovascular: Denies Chest Pain, Denies Lightheadedness, Denies Palpitations , Denies Syncope Gastrointestinal: Denies Constipated, Denies Diarrhea, Nausea, Poor Appetite, Poor Fluid Intake, Denies Vomiting Genitourinary: Denies Burning, Denies Discharge, Denies Pain Musculoskeletal: No joint pain, No joint swelling Skin: No pruritus, No rash (JUAQUIN STONE) Past Vltpdic-Kislbp-Foxqad Hx Patient Social History Alcohol Use: Denies Use Recreational Drug Use: No Smoking Status: Never a Smoker 2nd Hand Smoke Exposure: No Recent Foreign Travel: No Contact w/Someone Who Travel: No Recent Hopitalizations: No (JUAQUIN STONE) Immunizations Up To Date Tetanus Booster (TDap): Unknown (JUAQUIN STONE) Seasonal Allergies Seasonal Allergies: No (JUAQUIN STONE) Surgeries History of Surgeries: Yes (GALLBLADDER 2001) Surgeries: Gallbladder, Tubal Ligation (JUAQUIN STONE) Respiratory History of Respiratory Disorde: Yes Respiratory Disorders: Asthma (JUAQUIN STONE) Cardiovascular History of Cardiac Disorders: No (JUAQUIN STONE) Neurological History of Neurological Disord: No (JUAQUIN STONE) Reproductive System Hx Reproductive Disorders: No Female Reproductive Disorders: Denies LAW ENFORCEMENT OFFICER History: Tubal Ligation (JUAQUIN STONE) Genitourinary History of Genitourinary Disor: Yes Genitourinary Disorders: UTI-Chronic (JUAQUIN STONE) Gastrointestinal History of Gastrointestinal Di: Yes Gastrointestinal Disorders: Gastroesophageal Reflux, Hemorrhoids (JUAQUIN STONE) Musculoskeletal History of Musculoskeletal Dis: No (JUAQUIN STONE) Endocrine History of Endocrine Disorders: No (JUAQUIN STONE) HEENT History of HEENT Disorders: No (JUAQUIN STONE) Cancer History of Cancer: No (JUAQUIN STONE) Psychosocial History of Psychiatric Problem: No (JUAQUIN STONE) Integumentary History of Skin or Integumenta: No (JUAQUIN STONE) Blood Transfusions History of Blood Disorders: No (JUAQUIN STONE) Family Medical History Significant Family History: No Pertinent Family Hx (JUAQUIN STONE) Physical Exam Vital Signs VS - Last 72 Hours, by Label 02/07/17 17:52 Temp 97.2 Pulse 90 Resp 16 B/P (MAP) 127/92 Pulse Ox 97 (RADHA MCGARRY MD) Vital Signs Capillary Refill : (JUAQUIN STONE) General Appearance: WD/WN, mild distress HEENT: PERRL/EOMI, pharynx normal (oral mucosa is mildly dry.) Respiratory: chest non-tender, lungs clear, normal breath sounds Cardiovascular: normal peripheral pulses, regular rate, rhythm, no edema Peripheral Pulses: 2+ Radial Pulses (R), 2+ Radial Pulses (L) Gastrointestinal: normal bowel sounds, soft, no organomegaly, tenderness (she has tenderness in the left lower quadrant to palpation as well as suprapubic. She also has tenderness in the right lower quadrant near McBurney's point but no rebound tenderness. Most of her tenderness however it is felt whenever I palpate the upper right quadrant and she does appear to have Dawson's sign with halting of her breath due to pain on deep inspiration.), other Extremities: normal range of motion, normal inspection, no pedal edema, normal capillary refill Neurologic/Psychiatric: alert, normal mood/affect, oriented x 3 Skin: normal color, warm/dry (JUAQUIN STONE) Progress/Results/Core Measures Results/Orders Lab Results Laboratory Tests Test 02/07/17 17:35 02/07/17 17:46 Range/Units Urine Color YELLOW Urine Clarity CLEAR Urine pH 7 5-9 Urine Specific [place] 1.015 L 1.016-1.022 Urine Protein 1+ H NEGATIVE Urine Glucose (UA) NEGATIVE NEGATIVE Urine Ketones NEGATIVE NEGATIVE Urine Nitrite NEGATIVE NEGATIVE Urine Bilirubin NEGATIVE NEGATIVE Urine Urobilinogen NORMAL NORMAL MG/DL Urine Leukocyte Esterase 1+ H NEGATIVE Urine RBC (Auto) 5+ H NEGATIVE Urine RBC 10-25 H /HPF Urine WBC 0-2 /HPF Urine Squamous Epithelial Cells 25-50 H /HPF Urine Crystals NONE /LPF Urine Bacteria TRACE /HPF Urine Casts NONE /LPF Urine Mucus NEGATIVE /LPF Urine Culture Indicated NO Urine Test NEGATIVE NEGATIVE Urine Opiates Screen NEGATIVE NEGATIVE Urine Oxycodone Screen NEGATIVE NEGATIVE Urine Methadone Screen NEGATIVE NEGATIVE Urine Propoxyphene Screen NEGATIVE NEGATIVE Urine Barbiturates Screen NEGATIVE NEGATIVE Ur Tricyclic Antidepressants Screen NEGATIVE NEGATIVE Urine Phencyclidine Screen NEGATIVE NEGATIVE Urine Amphetamines Screen NEGATIVE NEGATIVE Urine Methamphetamines Screen NEGATIVE NEGATIVE Urine Benzodiazepines Screen NEGATIVE NEGATIVE Urine Cocaine Screen NEGATIVE NEGATIVE Urine Cannabinoids Screen NEGATIVE NEGATIVE White Blood Count 6.3 4.3-11.0 10^3/uL Red Blood Count 4.36 4.35-5.85 10^6/uL Hemoglobin 12.4 11.5-16.0 G/DL Hematocrit 37 35-52 % Mean Corpuscular Volume 84 80-99 FL Mean Corpuscular Hemoglobin 28 25-34 PG Mean Corpuscular Hemoglobin Concent 34 32-36 G/DL Red Cell Distribution Width 13.3 10.0-14.5 % Platelet Count 268 130-400 10^3/uL Mean Platelet Volume 9.7 7.4-10.4 FL Neutrophils (%) (Auto) 58 42-75 % Lymphocytes (%) (Auto) 33 12-44 % Monocytes (%) (Auto) 7 0-12 % Eosinophils (%) (Auto) 2 0-10 % Basophils (%) (Auto) 1 0-10 % Neutrophils # (Auto) 3.6 1.8-7.8 X 10^3 Lymphocytes # (Auto) 2.1 1.0-4.0 X 10^3 Monocytes # (Auto) 0.4 0.0-1.0 X 10^3 Eosinophils # (Auto) 0.1 0.0-0.3 10^3/uL Basophils # (Auto) 0.0 0.0-0.1 10^3/uL Sodium Level 138 135-145 MMOL/L Potassium Level 3.9 3.6-5.0 MMOL/L Chloride Level 106 98-107 MMOL/L Carbon Dioxide Level 24 21-32 MMOL/L Anion Gap 8 5-14 MMOL/L Blood Urea Nitrogen 11 7-18 MG/DL Creatinine 0.60 0.60-1.30 MG/DL Estimat Glomerular Filtration Rate > 60 BUN/Creatinine Ratio 18 Glucose Level 94 70-105 MG/DL Calcium Level 8.8 8.5-10.1 MG/DL Magnesium Level 1.8 1.8-2.4 MG/DL Total Bilirubin 0.3 0.1-1.0 MG/DL Aspartate Amino Transf (AST/SGOT) 25 5-34 U/L Alanine Aminotransferase (ALT/SGPT) 31 0-55 U/L Alkaline Phosphatase 62 40-136 U/L Total Protein 7.7 6.4-8.2 GM/DL Albumin 4.1 3.2-4.5 GM/DL Lipase 44 8-78 U/L (RADHA MCGARRY MD) Medications Given in ED Current Medications Medications Dose Ordered Sig/See Route Start Time Stop Time Status Last Admin Dose Admin Dextrose/Sodium Chloride 1,000 ml @ 0 mls/hr Q0M ONCE IV 02/07/17 17:42 02/07/17 17:44 DC 02/07/17 18:19 0 MLS/HR Iohexol 100 ml ONCE ONCE IV 02/07/17 18:00 02/07/17 18:01 UNV 02/07/17 18:28 100 ML Sodium Chloride 100 ml ONCE ONCE IV 02/07/17 18:00 02/07/17 18:01 UNV 02/07/17 18:28 80 ML (RADHA MCGARRY MD) Vital Signs/I&O Vital Sign - Last 12Hours 02/07/17 17:52 Temp 97.2 Pulse 90 Resp 16 B/P (MAP) 127/92 Pulse Ox 97 (RADHA MCGARRY MD) Progress Note #1: Time: 17:50 Progress Note We'll give her some IV fluids to resuscitate her and her recent week of diarrhea. Check electrolytes as well as a white blood cell count. She's had her gallbladder out however there is other pathology that could be going on her right upper quadrant that could explain her symptoms so we'll check a lipase and if we don't find anything acutely we'll get a CT scan of her belly with contrast. Barring any other pathology she should follow-up with a traffic engineering director to consider endoscopy and further management. Irritable bowel versus inflammatory bowel or still within the differential however this is fairly acute and certainly lead her to at least some level of mild to moderate dehydration. Patient is declining pain meds at this time stating she does not like how they make her feel. She rates her pain as moderate to severe. She is not having any nausea presently. Progress Note #2: Time: 18:20 Progress Note The blood seen and UA may be explained by her recent menstrual. (JUAQUIN STONE) Progress Note : Progress Note 0: CT results complete. Fluids nearly complete. Patient is doing okay. No significant pain currently. I did discuss results of CT scan as well as concerns of once this. Does have history of Bartholin's cyst and she will follow up with her creative designer. She is instructed to follow-up with her primary doctor for referral to a surgeon for possible upper lower endoscopy as well as further evaluation as needed. Discharged home with return precautions. Patient verbalize understanding instructions and agreement with plan. (RADHA MCGARRY MD) Diagnostic Imaging Diagonstic Imaging: CT Plain Films/CT/US/NM/MRI: abdomen, pelvis Reviewed: Reviewed by Me (JUAQUIN STONE) Comments NAME: MARISSA MILTON [facility] REC#: [id number] PT STATUS: REG ER : 1985 PHYSICIAN: JUAQUIN STONE MD ADMIT DATE: 02/07/17/ER Draft Date of Exam:02/07/17 CT ABDOMEN/PELVIS W PROCEDURE: CT abdomen and pelvis with contrast. TECHNIQUE: Multiple contiguous axial images were obtained through the abdomen and pelvis after administration of intravenous contrast. INDICATION: Abdominal pain. Nausea and vomiting. COMPARISON: 11/10/2016. FINDINGS: Included portions of the lung bases are clear. CT ABDOMEN: Descending colon is decompressed. Normal appendix cannot be adequately identified, but there is no pericecal inflammation. Small bowel loops are nondistended. The kidneys, adrenal glands, spleen, pancreas and liver have a normal CTA appearance. There is no loculated fluid collection, free fluid or free air within the abdomen. A few prominent appearing, yet subcentimeter, mesenteric lymph nodes are noted. No abnormal retroperitoneal adenopathy is identified. Bony structures show no acute abnormality. CT PELVIS: Urinary bladder is grossly unremarkable. There is no loculated fluid collection, free fluid or free air within the pelvis. No abnormal lymph nodes are seen. Bony structures show no acute abnormality. There does appear to be a large left-sided Bartholin cyst that measures 4.7 x 3.1 cm. IMPRESSION: 1. Few scattered prominent-appearing, yet subcentimeter, mesenteric lymph nodes within the abdomen. Findings are nonspecific, but can be seen with underlying mesenteric panniculitis/adenitis. 2. Otherwise, no acute abnormalities within the abdomen or pelvis. 3. Large left-sided Bartholin cyst. Dictated on workstation # [id number] Dict: 02/07/17 1853 Trans: 02/07/17 190 [facility] [id number] Interpreted by: AMAURI CURRY MD Electronically signed by: (RADHA MCGARRY MD) Transfer of Care Transfer of Care Time: 18:21 Care transferred to: JUAQUIN BURNS) Departure Impression Impression: Primary Impression: Generalized abdominal pain Additional Impression: Bartholin's gland cyst Disposition: 01 HOME, SELF-CARE Condition: Improved Departure-Patient Inst. Decision time for Depature: 19:14 (RADHA MCGARRY MD) Referrals: [facility] (PCP/Family) Primary Care Physician Patient Instructions: Acute Abdomen (Belly Pain), Adult (DC), Bartholin's Gland Cyst Add. Discharge Instructions: All discharge instructions reviewed with patient and/or family. Voiced understanding. Clear liquid or light diet for the next 24-48 hours and then advance as tolerated. Drink plenty of fluids. Follow-up with your Dr. in a few days for recheck. You should discuss with your doctor about referral for surgical evaluation for upper and lower endoscopy (scope) as indicated. Follow-up with her creative designer regarding the Bartholin's gland cyst. Return for worse pain, fever, vomiting, weakness, breathing problems or other concerns as needed. Copy Copies To 1: ELLIOT ROSENBAUM TITUS J Feb 07, 2017 17:49 RADHA MCGARRY MD Feb 07, 2017 19:16
[2017-02-07 17:56] LABS: BASOPHILS % (AUTO) 1 % (0-10); EOSINOPHILS # (AUTO) 0.1 10^3/uL (0.0-0.3); EOSINOPHILS % (AUTO) 2 % (0-10); LYMPHOCYTES # (AUTO) 2.1 X 10^3 (1.0-4.0); LYMPHOCYTES % (AUTO) 33 % (12-44); MEAN CORPUSCULAR HEMOGLOBIN 28 PG (25-34); MEAN CORPUSCULAR HGB CONC 34 G/DL (32-36); MEAN CORPUSCULAR VOLUME 84 FL (80-99); MEAN PLATELET VOLUME 9.7 FL (7.4-10.4); MONOCYTES # (AUTO) 0.4 X 10^3 (0.0-1.0); MONOCYTES % (AUTO) 7 % (0-12); NEUTROPHILS # (AUTO) 3.6 X 10^3 (1.8-7.8); NEUTROPHILS % (AUTO) 58 % (42-75); PLATELET COUNT 268 10^3/uL (130-400); RED BLOOD COUNT 4.36 10^6/uL (4.35-5.85); RED CELL DISTRIBUTION WIDTH 13.3 % (10.0-14.5); WHITE BLOOD COUNT 6.3 10^3/uL (4.3-11.0)
[2017-02-07] MEDS ORDERED: NS 100 ML (IVPB) BAG IV ONE (18:00)
[2017-02-07] MEDS ORDERED: IOHEXOL 350 MG/ML 100 ML (OMNIPAQUE 350) VIAL IV ONE (18:00)
[2017-02-07 18:01] LABS: BILIRUBIN,URINE NEGATIVE (NEGATIVE); NITRITE,URINE NEGATIVE (NEGATIVE); PH,URINE 7 (5-9); UROBILINOGEN,URINE NORMAL (NORMAL)
[2017-02-07 18:03] LABS: KETONES,URINE NEGATIVE (NEGATIVE); LEUKOCYTE ESTERASE ,URINE 1+ (NEGATIVE); PROTEIN,URINE 1+ (NEGATIVE)
[2017-02-07 18:12] LABS: SQUAMOUS EPITHELIAL CELL,UR 25-50 /HPF; WBC,URINE 0-2 /HPF
[2017-02-07 18:13] LABS: ALANINE AMINOTRANSFERASE 31 U/L (0-55); ALBUMIN 4.1 GM/DL (3.2-4.5); ANION GAP 8 MMOL/L (5-14); ASPARTATE AMINO TRANSFERASE 25 U/L (5-34); BILIRUBIN,TOTAL 0.3 MG/DL (0.1-1.0); BLOOD UREA NITROGEN 11 MG/DL (7-18); BUN/CREATININE RATIO 18; CALCIUM 8.8 MG/DL (8.5-10.1); CARBON DIOXIDE 24 MMOL/L (21-32); CHLORIDE 106 MMOL/L (98-107); GFR ESTIMATED > 60; GLUCOSE 94 MG/DL (70-105); LIPASE 44 U/L (8-78); MAGNESIUM 1.8 MG/DL (1.8-2.4); POTASSIUM 3.9 MMOL/L (3.6-5.0); SODIUM 138 MMOL/L (135-145); TOTAL PROTEIN 7.7 GM/DL (6.4-8.2)
--- NOTE | 2017-02-07 19:05 | Diagnostic Imaging Report ---
PROCEDURE: CT abdomen and pelvis with contrast. TECHNIQUE: Multiple contiguous axial images were obtained through the abdomen and pelvis after administration of intravenous contrast. INDICATION: Abdominal pain. Nausea and vomiting. COMPARISON: 11/10/2016. FINDINGS: Included portions of the lung bases are clear. CT ABDOMEN: Descending colon is decompressed. Normal appendix cannot be adequately identified, but there is no pericecal inflammation. Small bowel loops are nondistended. The kidneys, adrenal glands, spleen, pancreas and liver have a normal CTA appearance. There is no loculated fluid collection, free fluid or free air within the abdomen. A few prominent appearing, yet subcentimeter, mesenteric lymph nodes are noted. No abnormal retroperitoneal adenopathy is identified. Bony structures show no acute abnormality. CT PELVIS: Urinary bladder is grossly unremarkable. There is no loculated fluid collection, free fluid or free air within the pelvis. No abnormal lymph nodes are seen. Bony structures show no acute abnormality. There does appear to be a large left-sided Bartholin cyst that measures 4.7 x 3.1 cm. IMPRESSION: 1. Few scattered prominent-appearing, yet subcentimeter, mesenteric lymph nodes within the abdomen. Findings are nonspecific, but can be seen with underlying mesenteric panniculitis/adenitis. 2. Otherwise, no acute abnormalities within the abdomen or pelvis. 3. Large left-sided Bartholin cyst. Dictated by: Dictated on workstation # [id number]
[2017-02-07 19:23] VITALS: BP 116/81
== END 2017-02-07 19:23 | disposition home or self-care (01) ==
LOC: EDUNIT# 17:08 → ER 17:10
DX: N75.0 Cyst of Bartholin's gland (principal); K21.9 Gastro-esophageal reflux disease without esophagitis; J45.909 Unspecified asthma, uncomplicated; Z98.51 Tubal ligation status
CPT/HCPCS: 36415; 74177; 80053; 80306; 81000; 83690; 83735; 84703; 85025

== ENCOUNTER 2020-10-02 17:39 | Emergency (ER) | payer MEDICAID, OTHER ==
[~2020-10-02] VITALS: Ht 157.4 cm; Wt 82.5 kg
--- NOTE | 2020-10-02 17:53 | ED Abdominal Pain ---
General Stated Complaint: BACK PAIN, SIDE PAIN Source of Information: Patient History of Present Illness Date Seen by Provider: Oct 02, 2020 Time Seen by Provider: 17:49 Initial Comments PT ARRIVES VIA POV FROM HOME C/O LLQ PAIN X 2 WEEKS NOW STARTING TO RADIATE TO LEFT FLANK PAIN IS WORSE WITH BENDING OVER + NAUSEA, NO VOMITING. NO DIARRHEA OR CONSTIPATION. HAD NORMAL BM TODAY NO URINARY SYMPTOMS NO FEVER WAS SEEN AT [facility] ON Wednesday09/27/20 FOR THIS AND AGAIN ON Wednesday09/30/20. PT STATES THE ONLY TEST SHE HAD WAS XRAYS. IS SUPPOSED TO HAVE AN ULTRASOUND NEXT WEDNESDAY AT [facility]. STATES SHE WAS GIVEN A PRESCRIPTION FOR NAUSEA MEDICATION PT TOOK AN ADVIL AND A TYLENOL AT 10 AM TODAY WHILE AT WORK. JUST STARTED WORKING AT [employer] 2 DAYS AGO ATE [place] JUST PRIOR TO ARRIVAL DENIES HISTORY OF SIMILAR LMP 2 WEEKS AGO, NORMAL. HAS HAD BTL HAS ALSO HAD CHOLECYSTECTOMY NO CHRONIC MEDICAL PROBLEMS, NO PRIOR GI PROBLEMS DOES HAVE HISTORY OF UTI'S BUT NO RECENT PROBLEMS PCP:[facility] Allergies and Home Medications Allergies Coded Allergies: morphine (Unverified Allergy, Mild, ITCHING, 10/09/08) Home Medications Ondansetron 8 Mg Tab.rapdis, 8 MG PO Q6H PRN for NAUSEA/VOMITING-1ST LINE Prescribed by: ALCIDES DIAZ on 11/10/162152 Review of Systems Review of Systems Constitutional: no symptoms reported Respiratory: No Symptoms Reported Cardiovascular: No Symptoms Reported Gastrointestinal: See HPI, Abdominal Pain; Denies Constipated, Denies Diarrhea; Nausea; Denies Poor Appetite, Denies Poor Fluid Intake, Denies Vomiting Genitourinary: No Symptoms Reported Musculoskeletal: see HPI, back pain Skin: no symptoms reported Psychiatric/Neurological: No Symptoms Reported Endocrine: No Symptoms Reported Hematologic/Lymphatic: No Symptoms Reported Past Usitnay-Qejryp-Ricugf Hx Patient Social History Tobacco Use?: No Smoking Status: Never a Smoker Smokeless Tobacco Frequency: Never a User Use of E-Cig and/or Vaping dev: No Substance use?: No Alcohol Use?: No Immunizations Up To Date Tetanus Booster (TDap): Unknown Seasonal Allergies Seasonal Allergies: No Past Medical History Surgeries: Yes (GALLBLADDER 2001; LABIAL CYST/ABSCESS I&D) Gallbladder, Tubal Ligation Respiratory: Yes Asthma Cardiac: Yes High Cholesterol Neurological: No Reproductive Disorders: No Female Reproductive Disorders: Denies [employer] History: Tubal Ligation Genitourinary: Yes UTI-Chronic Gastrointestinal: Yes Gastroesophageal Reflux, Hemorrhoids Musculoskeletal: No Endocrine: No HEENT: No Cancer: No Psychosocial: No Integumentary: Yes (LABIAL CYST/ABSCESS I&D) Blood Disorders: No Family Medical History No Pertinent Family Hx Physical Exam Vital Signs Vital Signs - First Documented 10/02/20 18:03 Temp 36.7 Pulse 104 Resp 20 B/P (MAP) 127/88 (101) Pulse Ox 99 Capillary Refill : Height/Weight/BMI Height: 5'1.00" Weight: 175lbs. 0.0oz. 79.336776pq; 33.3 BMI Method:Stated General Appearance: WD/WN, no apparent distress, other (TALKS RAPIDLY, NON- STOP. WALKS UPRIGHT AND MOVES WITHOUT DIFFICULTY. 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 as tested, no motor/sensory deficits, oriented x 3 Skin: normal color (PT IS ), warm/dry; No rash Progress/Results/Core Measures Results/Orders Lab Results Laboratory Tests Test 10/02/20 18:03 10/02/20 18:05 Range/Units White Blood Count 6.0 4.3-11.0 10^3/uL Red Blood Count 3.82 3.80-5.11 10^6/uL Hemoglobin 10.3 L 11.5-16.0 g/dL Hematocrit 31 L 35-52 % Mean Corpuscular Volume 82 80-99 fL Mean Corpuscular Hemoglobin 27 25-34 pg Mean Corpuscular Hemoglobin Concent 33 32-36 g/dL Red Cell Distribution Width 14.7 H 10.0-14.5 % Platelet Count 278 130-400 10^3/uL Mean Platelet Volume 11.1 9.0-12.2 fL Immature Granulocyte % (Auto) 0 % Neutrophils (%) (Auto) 59 42-75 % Lymphocytes (%) (Auto) 32 12-44 % Monocytes (%) (Auto) 6 0-12 % Eosinophils (%) (Auto) 2 0-10 % Basophils (%) (Auto) 1 0-10 % Neutrophils # (Auto) 3.5 1.8-7.8 10^3/uL Lymphocytes # (Auto) 1.9 1.0-4.0 10^3/uL Monocytes # (Auto) 0.4 0.0-1.0 10^3/uL Eosinophils # (Auto) 0.1 0.0-0.3 10^3/uL Basophils # (Auto) 0.0 0.0-0.1 10^3/uL Immature Granulocyte # (Auto) 0.0 0.0-0.1 10^3/uL Percent Immature Platelet Fraction 4.2 0.0-7.6 % Sodium Level 139 135-145 MMOL/L Potassium Level 4.1 3.6-5.0 MMOL/L Chloride Level 107 98-107 MMOL/L Carbon Dioxide Level 19 L 21-32 MMOL/L Anion Gap 13 5-14 MMOL/L Blood Urea Nitrogen 11 7-18 MG/DL Creatinine 0.61 0.60-1.30 MG/DL Estimat Glomerular Filtration Rate 111 BUN/Creatinine Ratio 18 Glucose Level 111 H 70-105 MG/DL Calcium Level 8.5 8.5-10.1 MG/DL Corrected Calcium 8.5 8.5-10.1 MG/DL Total Bilirubin 0.3 0.1-1.0 MG/DL Aspartate Amino Transf (AST/SGOT) 31 5-34 U/L Alanine Aminotransferase (ALT/SGPT) 24 0-55 U/L Alkaline Phosphatase 56 40-136 U/L Total Protein 7.6 6.4-8.2 GM/DL Albumin 4.0 3.2-4.5 GM/DL Amylase Level 64 25-125 U/L Lipase 35 8-78 U/L Urine Color YELLOW Urine Clarity CLEAR Urine pH 7.0 5-9 Urine Specific [place] 1.025 H 1.016-1.022 Urine Protein NEGATIVE NEGATIVE Urine Glucose (UA) NEGATIVE NEGATIVE Urine Ketones NEGATIVE NEGATIVE Urine Nitrite NEGATIVE NEGATIVE Urine Bilirubin NEGATIVE NEGATIVE Urine Urobilinogen 1.0 < = 1.0 MG/DL Urine Leukocyte Esterase NEGATIVE NEGATIVE Urine RBC (Auto) NEGATIVE NEGATIVE Urine RBC NONE /HPF Urine WBC NONE /HPF Urine Squamous Epithelial Cells 10-25 H /HPF Urine Crystals NONE /LPF Urine Bacteria TRACE /HPF Urine Casts NONE /LPF Urine Mucus SMALL H /LPF Urine Culture Indicated NO My Orders Orders - SHANEL MEEK DO Urine Bedside (10/02/20 17:43) Ua Culture If Indicated (10/02/20 17:43) Ed Iv/Invasive Line Start (10/02/20 17:53) Amylase (10/02/20 17:53) Cbc With Automated Diff (10/02/20 17:53) Comprehensive Metabolic Panel (10/02/20 17:53) Lipase (10/02/20 17:53) Abdomen/Kub 1view (10/02/20 18:30) Ct Abd/Pelvis Wo(Kidney Stone) (10/02/20 18:30) Vital Signs/I&O 10/02/20 18:03 Temp 36.7 Pulse 104 Resp 20 B/P (MAP) 127/88 (101) Pulse Ox 99 Progress Progress Note : Progress Note PT DECLINES PAIN MEDICATIONS Diagnostic Imaging Comments CT ABDOMEN/PELVIS--PER RADIOLOGIST REPORT AT 1901 FINDINGS: The lung bases are clear. The gallbladder surgically absent. There is no free air or free fluid. Solid organs, vascular structures and bowel are unremarkable. There are no renal calculi. The appendix is normal. There is trace free fluid in the cul-de-sac, likely physiologic. The uterus is intact. Urinary bladder normal. No hernia seen. There is no inflammation. Osseous structures normal. IMPRESSION: 1. Trace free fluid in the cul-de-sac likely physiologic 2. No renal calculi or hydronephrosis. 3. No bowel obstruction, free air, or free fluid. 4. Surgically absent gallbladder. ABDOMEN XRAYS--PER RADIOLOGIST REPORT AT 1901 FINDINGS: There is some gas in both the large and small bowel in a nonspecific fashion. There has been an increase in the amount of gas in the large and small bowel since the prior CT abdomen/pelvis exam of 02/07/2017. However, there is no evidence for a bowel obstruction. There does appear to be a fair amount of fecal material in the ascending and proximal transverse colon. There is no mass or organomegaly identified. However, there is a small 3.7 mm calcific density low in the pelvis on the left. The CT abdomen/pelvis exam performed on 11/10/2016 did note a few small phleboliths in this region. However, if there is clinical concern regarding an obstructive ureteral calculus on the left, then CT would be recommended for further study. The osseous structures are intact. Surgical clips are again seen overlying the right upper quadrant. IMPRESSION: 1. The bowel gas pattern is nonspecific. There is no acute abnormality identified. 2. The small calcific density low in the pelvis on the left is of uncertain etiology. Considerations and recommendations as above. Reviewed: Reviewed by Me Departure Impression Primary Impression: LLQ abdominal pain Disposition: HOME, SELF-CARE Condition: Stable Departure-Patient Inst. Referrals: [facility] (PCP/Family) Primary Care Physician Patient Instructions: Abdominal Pain, Adult ED Add. Discharge Instructions: TYLENOL 1 GRAM /MOTRIN 800 MG 4 TIMES A DAY NEEDED FOR PAIN TAKE YOUR NAUSEA MEDICATION NEEDED FOLLOW UP WITH [facility] THIS WEEK FOR FURTHER CARE SHANEL MEEK DO Oct 02, 2020 17:53
[2020-10-02 18:08] LABS: MONOCYTES # (AUTO) 0.4 10^3/uL (0.0-1.0)
[2020-10-02 18:10] LABS: BASOPHILS % (AUTO) 1 % (0-10); EOSINOPHILS # (AUTO) 0.1 10^3/uL (0.0-0.3); EOSINOPHILS % (AUTO) 2 % (0-10); HEMATOCRIT 31 % (35-52); HEMOGLOBIN 10.3 g/dL (11.5-16.0); LYMPHOCYTES # (AUTO) 1.9 10^3/uL (1.0-4.0); LYMPHOCYTES % (AUTO) 32 % (12-44); MEAN CORPUSCULAR HEMOGLOBIN 27 pg (25-34); MEAN CORPUSCULAR HGB CONC 33 g/dL (32-36); MEAN CORPUSCULAR VOLUME 82 fL (80-99); MEAN PLATELET VOLUME 11.1 fL (9.0-12.2); MONOCYTES % (AUTO) 6 % (0-12); NEUTROPHILS # (AUTO) 3.5 10^3/uL (1.8-7.8); NEUTROPHILS % (AUTO) 59 % (42-75); PLATELET COUNT 278 10^3/uL (130-400)
[2020-10-02 18:11] LABS: BILIRUBIN,URINE NEGATIVE (NEGATIVE); CLARITY,URINE CLEAR; COLOR,URINE YELLOW; GLUCOSE, URINE (UA) NEGATIVE (NEGATIVE); KETONES,URINE NEGATIVE (NEGATIVE); LEUKOCYTE ESTERASE ,URINE NEGATIVE (NEGATIVE); NITRITE,URINE NEGATIVE (NEGATIVE); PROTEIN,URINE NEGATIVE (NEGATIVE)
[2020-10-02 18:19] LABS: POTASSIUM 4.1 MMOL/L (3.6-5.0)
[2020-10-02 18:19] LABS: BACTERIA,URINE TRACE /HPF
[2020-10-02 18:21] LABS: CALCIUM 8.5 MG/DL (8.5-10.1)
[2020-10-02 18:22] LABS: TOTAL PROTEIN 7.6 GM/DL (6.4-8.2)
[2020-10-02 18:24] LABS: BILIRUBIN,TOTAL 0.3 MG/DL (0.1-1.0)
[2020-10-02 18:25] LABS: CREATININE SERUM 0.61 MG/DL (0.60-1.30)
--- NOTE | 2020-10-02 18:56 | Diagnostic Imaging Report ---
PROCEDURE: CT urinary tract, rule out kidney stone. TECHNIQUE: Multiple contiguous axial images were obtained through the abdomen and pelvis without the use of intravenous contrast. Auto Exposure Controls were utilized during the CT exam to meet ALARA standards for radiation dose reduction. INDICATION: Left-sided abdominal pain, kidney stone COMPARISON: 02/07/2017. FINDINGS: The lung bases are clear. The gallbladder surgically absent. There is no free air or free fluid. Solid organs, vascular structures and bowel are unremarkable. There are no renal calculi. The appendix is normal. There is trace free fluid in the cul-de-sac, likely physiologic. The uterus is intact. Urinary bladder normal. No hernia seen. There is no inflammation. Osseous structures normal. IMPRESSION: 1. Trace free fluid in the cul-de-sac likely physiologic 2. No renal calculi or hydronephrosis. 3. No bowel obstruction, free air, or free fluid. 4. Surgically absent gallbladder. Dictated by: Dictated on workstation # [id number]
--- NOTE | 2020-10-02 18:56 | Diagnostic Imaging Report ---
INDICATION: Supine abdomen at 6:47 PM INDICATION: Left abdominal pain TECHNIQUE: Single supine view was obtained. FINDINGS: There is some gas in both the large and small bowel in a nonspecific fashion. There has been an increase in the amount of gas in the large and small bowel since the prior CT abdomen/pelvis exam of 02/07/2017. However, there is no evidence for a bowel obstruction. There does appear to be a fair amount of fecal material in the ascending and proximal transverse colon. There is no mass or organomegaly identified. However, there is a small 3.7 mm calcific density low in the pelvis on the left. The CT abdomen/pelvis exam performed on 11/10/2016 did note a few small phleboliths in this region. However, if there is clinical concern regarding an obstructive ureteral calculus on the left, then CT would be recommended for further study. The osseous structures are intact. Surgical clips are again seen overlying the right upper quadrant. IMPRESSION: 1. The bowel gas pattern is nonspecific. There is no acute abnormality identified. 2. The small calcific density low in the pelvis on the left is of uncertain etiology. Considerations and recommendations as above. Dictated by: Dictated on workstation # [id number]
[2020-10-02 19:24] VITALS: BP 102/77
== END 2020-10-02 19:24 | disposition home or self-care (01) ==
LOC: EDUNIT# 17:39 → ER 17:43
DX: R10.32 Left lower quadrant pain (principal); J45.909 Unspecified asthma, uncomplicated; Z90.49 Acquired absence of other specified parts of digestive tract
CPT/HCPCS: 36415; 74018; 74176; 80053; 81000; 82150; 83690; 84703; 85025

== ENCOUNTER 2021-03-20 23:37 | Emergency (ER) | payer SELFPAY | END 2021-03-20 23:55 | disposition left against medical advice (07) | LOC: EDUNIT# 23:37 → ER 23:42 | DX: R10.11 Right upper quadrant pain (principal) ==

== ENCOUNTER 2021-05-06 01:37 | Emergency (ER) | payer SELFPAY ==
[2021-05-06 02:10] VITALS: BP 108/80
[2021-05-06] MEDS ORDERED: LACTATED RINGERS 1,000 ML IV STA (02:22)
--- NOTE | 2021-05-06 02:26 | ED GI ---
General Stated Complaint: VOMITING,DIARRHEA,NAUSEA Source of Information: Patient Exam Limitations: No Limitations History of Present Illness Date Seen by Provider: May 06, 2021 Time Seen by Provider: 01:52 Initial Comments 36-year-old female with no significant past medical history coming in due to 1 day of nonbloody nonbilious vomiting and numerous episodes of nonbloody diarrhea with abdominal cramping. Started around 6 AM yesterday morning. Denies any chest pain, shortness of breath, significant abdominal pain that is constant, cough, fever, chills, weakness, numbness, dysuria, urinary frequency, vaginal bleeding, or any other concerns. She had a tubal ligation previously. Had COVID a year ago, is not vaccinated for it. Allergies and Home Medications Allergies Coded Allergies: morphine (Unverified Allergy, Mild, ITCHING, 10/09/08) Patient Home Medication List Home Medication List Reviewed: Yes Ondansetron (Ondansetron Odt) 8 Mg Tab.rapdis, 8 MG PO Q6H PRN for NAUSEA/VOMITING-1ST LINE Prescribed by: ALCIDES DIAZ on 11/10/162152 Review of Systems Review of Systems Constitutional: No chills, No fever EENTM: No Blurred Vision Respiratory: Denies Cough, Denies Shortness of Air Cardiovascular: Denies Chest Pain Gastrointestinal: Denies Abdominal Pain; Diarrhea, Nausea, Vomiting Genitourinary: No Symptoms Reported Musculoskeletal: no symptoms reported Skin: no symptoms reported Psychiatric/Neurological: No Symptoms Reported Endocrine: No Symptoms Reported Hematologic/Lymphatic: No Symptoms Reported All Other Systems Reviewed Negative Unless Noted: Yes Past Tdtjqlh-Tnpldp-Towcfr Hx Patient Social History Tobacco Use?: No Immunizations Up To Date Tetanus Booster (TDap): Unknown Seasonal Allergies Seasonal Allergies: No Past Medical History Surgeries: Yes (GALLBLADDER 2001; LABIAL CYST/ABSCESS I&D) Gallbladder, Tubal Ligation Respiratory: Yes Asthma Cardiac: Yes High Cholesterol Neurological: No Reproductive Disorders: No Female Reproductive Disorders: Denies [employer]ANT History: Tubal Ligation Genitourinary: Yes UTI-Chronic Gastrointestinal: Yes Gastroesophageal Reflux, Hemorrhoids Musculoskeletal: No Endocrine: No HEENT: No Cancer: No Psychosocial: No Integumentary: Yes (LABIAL CYST/ABSCESS I&D) Blood Disorders: No Family Medical History No Pertinent Family Hx Physical Exam Vital Signs Capillary Refill : Height/Weight/BMI Height: 5'1.00" Weight: 175lbs. 0.0oz. 79.959500bo; 33.00 BMI Method:Stated General Appearance: WD/WN, no apparent distress HEENT: PERRL/EOMI, normal ENT inspection, pharynx normal Neck: non-tender, full range of motion, supple, normal inspection Respiratory: chest non-tender, lungs clear, normal breath sounds, no respiratory distress, no accessory muscle use Cardiovascular: regular rate, rhythm, no edema, no murmur Gastrointestinal: normal bowel sounds, non tender, soft; No distended, No guarding, No rebound Extremities: normal range of motion, non-tender, normal inspection, no pedal edema, no calf tenderness, normal capillary refill Back: normal inspection, no CVA tenderness, no vertebral tenderness Neurologic/Psychiatric: no motor/sensory deficits, alert, normal mood/affect Skin: normal color, warm/dry Lymphatic: no adenopathy Progress/Results/Core Measures Results/Orders Lab Results Laboratory Tests Test 05/06/21 02:25 05/06/21 02:35 Range/Units White Blood Count 5.7 4.3-11.0 10^3/uL Red Blood Count 4.57 3.80-5.11 10^6/uL Hemoglobin 11.1 L 11.5-16.0 g/dL Hematocrit 36 35-52 % Mean Corpuscular Volume 79 L 80-99 fL Mean Corpuscular Hemoglobin 24 L 25-34 pg Mean Corpuscular Hemoglobin Concent 31 L 32-36 g/dL Red Cell Distribution Width 15.6 H 10.0-14.5 % Platelet Count 315 130-400 10^3/uL Mean Platelet Volume 9.7 9.0-12.2 fL Immature Granulocyte % (Auto) 0 % Neutrophils (%) (Auto) 83 H 42-75 % Lymphocytes (%) (Auto) 10 L 12-44 % Monocytes (%) (Auto) 6 0-12 % Eosinophils (%) (Auto) 0 0-10 % Basophils (%) (Auto) 0 0-10 % Neutrophils # (Auto) 4.8 1.8-7.8 10^3/uL Lymphocytes # (Auto) 0.6 L 1.0-4.0 10^3/uL Monocytes # (Auto) 0.4 0.0-1.0 10^3/uL Eosinophils # (Auto) 0.0 0.0-0.3 10^3/uL Basophils # (Auto) 0.0 0.0-0.1 10^3/uL Immature Granulocyte # (Auto) 0.0 0.0-0.1 10^3/uL Sodium Level 133 L 135-145 MMOL/L Potassium Level 3.6 3.6-5.0 MMOL/L Chloride Level 105 98-107 MMOL/L Carbon Dioxide Level 18 L 21-32 MMOL/L Anion Gap 10 5-14 MMOL/L Blood Urea Nitrogen 11 7-18 MG/DL Creatinine 0.62 0.60-1.30 MG/DL Estimat Glomerular Filtration Rate 118 BUN/Creatinine Ratio 18 Glucose Level 113 H 70-105 MG/DL Calcium Level 8.7 8.5-10.1 MG/DL Corrected Calcium 8.5 8.5-10.1 MG/DL Total Bilirubin 0.8 0.1-1.0 MG/DL Aspartate Amino Transf (AST/SGOT) 20 5-34 U/L Alanine Aminotransferase (ALT/SGPT) 26 0-55 U/L Alkaline Phosphatase 74 40-136 U/L Total Protein 8.2 6.4-8.2 GM/DL Albumin 4.2 3.2-4.5 GM/DL Lipase 27 8-78 U/L Influenza Type A (RT-PCR) Not Detected Not Detecte Influenza Type B (RT-PCR) Not Detected Not Detecte SARS-CoV-2 RNA (RT-PCR) Not Detected Not Detecte My Orders Orders - CYNTHIA MONTEZ MD Cbc With Automated Diff (05/06/21 02:22) Comprehensive Metabolic Panel (05/06/21 02:22) Lipase (05/06/21 02:22) Influenza A And B By Pcr (05/06/21 02:22) Ondansetron Injection (Zofran Injectio (05/06/21 02:30) Lactated Ringers (Lr 1000 Ml Iv Solution (05/06/21 02:22) Ed Iv/Invasive Line Start (05/06/21 02:22) Covid 19 Inhouse Test (05/06/21 02:22) Medications Given in ED Current Medications Medications Dose Ordered Sig/See Route Start Time Stop Time Status Last Admin Dose Admin Ondansetron HCl 4 mg ONCE ONCE IVP 05/06/21 02:30 05/06/21 02:31 DC 05/06/21 02:36 4 MG Departure Impression Primary Impression: Vomiting and diarrhea Disposition: 01 HOME, SELF-CARE Condition: Stable Departure-Patient Inst. Decision time for Depature: 03:14 Referrals: [facility] (PCP/Family) Primary Care Physician Patient Instructions: Nausea and Vomiting, Adult ED, Diarrhea, Adult ED Add. Discharge Instructions: Your flu and COVID test were negative. You likely have a GI bug that typically takes a couple days to get better. I sent nausea medicine to your pharmacy. You can also take [id number] Pepto-Bismol for diarrhea, but it can make your stools black so do not be worried if you see this. Follow-up with your regular doctor in the next couple days especially if you are not feeling better. If you begin having severe abdominal pain that is not going away please come back to the ER. Scripts Ondansetron (Ondansetron Odt) 4 Mg Tab.rapdis 4 MG PO Q6H PRN for NAUSEA/VOMITING-1ST LINE for 5 Days, #20 TAB Prov: CYNTHIA MONTEZ MD 05/06/21 Work/School Note: Work Release Form Date Seen in the Emergency Department: May 06, 2021 Return to Work: May 07, 2021 Restrictions: Return-No Fever (24hrs), Return-No Vomiting(24hrs) CYNTHIA MONTEZ MD May 06, 2021 02:26
[2021-05-06] MEDS ORDERED: ONDANSETRON 4 MG/2 ML (SDV) Z0FRAN IVP ONE (02:30)
[2021-05-06 02:34] LABS: BASOPHILS % (AUTO) 0 % (0-10); EOSINOPHILS % (AUTO) 0 % (0-10); HEMATOCRIT 36 % (35-52); HEMOGLOBIN 11.1 g/dL (11.5-16.0); LYMPHOCYTES # (AUTO) 0.6 10^3/uL (1.0-4.0); LYMPHOCYTES % (AUTO) 10 % (12-44); MEAN CORPUSCULAR HEMOGLOBIN 24 pg (25-34); MEAN CORPUSCULAR HGB CONC 31 g/dL (32-36); MEAN CORPUSCULAR VOLUME 79 fL (80-99); MEAN PLATELET VOLUME 9.7 fL (9.0-12.2); MONOCYTES # (AUTO) 0.4 10^3/uL (0.0-1.0); MONOCYTES % (AUTO) 6 % (0-12); NEUTROPHILS # (AUTO) 4.8 10^3/uL (1.8-7.8); NEUTROPHILS % (AUTO) 83 % (42-75); PLATELET COUNT 315 10^3/uL (130-400); WHITE BLOOD COUNT 5.7 10^3/uL (4.3-11.0)
[2021-05-06 02:45] LABS: ALBUMIN 4.2 GM/DL (3.2-4.5)
[2021-05-06 02:46] LABS: POTASSIUM 3.6 MMOL/L (3.6-5.0)
[2021-05-06 02:47] LABS: CALCIUM 8.7 MG/DL (8.5-10.1)
[2021-05-06 02:48] LABS: TOTAL PROTEIN 8.2 GM/DL (6.4-8.2)
[2021-05-06 02:50] LABS: BILIRUBIN,TOTAL 0.8 MG/DL (0.1-1.0)
[2021-05-06 02:51] LABS: CREATININE SERUM 0.62 MG/DL (0.60-1.30)
[2021-05-06] MEDS ORDERED: ONDA4TAB11 PO (03:16)
== END 2021-05-06 03:30 | disposition home or self-care (01) ==
LOC: EDUNIT# 01:37 → ER 01:40
DX: R11.10 Vomiting, unspecified (principal); R19.7 Diarrhea, unspecified; J45.909 Unspecified asthma, uncomplicated; Z20.822 Contact with and (suspected) exposure to COVID-19
CPT/HCPCS: 36415; 80053; 83690; 85025; 87636

== ENCOUNTER 2021-09-10 13:02 | Emergency (ER) | payer SELFPAY ==
[~2021-09-10] VITALS: Ht 145 cm; Wt 76.0 kg
[~2021-09-10 13:02] MED LIST changes: +ONDA4TAB11 PO
[2021-09-10 13:26] VITALS: BP 121/75
--- NOTE | 2021-09-10 13:35 | ED General ---
General Chief Complaint: COVID19 Suspect/Confirmed Stated Complaint: BODY ACHES,WEAKNESS Source of Information: Patient Exam Limitations: No Limitations History of Present Illness Date Seen by Provider: Sep 10, 2021 Time Seen by Provider: 13:33 Initial Comments Patient is a 36-year-old female presents ED with generalized weakness and lightheadedness. She states she started feeling weak and fatigued yesterday. Started having some pain in her legs and left arm. States she has a mild shortness of breath. She states she has had decreased appetite and not eating or drinking as much as she should be. She has lightheadedness when she stands. Denies room spinning. She reports some mild abdominal discomfort without any severe pain. No vomiting, diarrhea urinary symptoms or concern for . Last menstrual cycle 3 weeks ago. Denies headache, visual change, sore throat, ear pain, neck pain, unilateral muscle weakness or sensory changes. Denies taking anything medication at home. No one else at home with similar symptoms Allergies and Home Medications Allergies Coded Allergies: morphine (Unverified Allergy, Mild, ITCHING, 10/09/08) Patient Home Medication List Home Medication List Reviewed: Yes Ondansetron (Ondansetron Odt) 8 Mg Tab.rapdis, 8 MG PO Q6H PRN for NAUSEA/VOMITING-1ST LINE Prescribed by: ALCIDES DIAZ on 11/10/162152 Ondansetron (Ondansetron Odt) 4 Mg Tab.rapdis, 4 MG PO Q6H PRN for NAUSEA/VOMITING-1ST LINE Prescribed by: CYNTHIA MONTEZ on 05/06/21 0316 Review of Systems Review of Systems Constitutional: No chills, No diaphoresis; malaise, weakness EENTM: No hearing loss, No blurred vision, No double vision Respiratory: No cough, No orthopnea, No short of breath Cardiovascular: No chest pain Gastrointestinal: No abdominal pain, No diarrhea, No nausea, No vomiting Genitourinary: No decreased output, No discharge Musculoskeletal: No back pain, No joint pain Skin: No change in color, No change in hair/nails All Other Systems Reviewed Negative Unless Noted: Yes Past [id number] Hx Immunizations Up To Date Tetanus Booster (TDap): Unknown First/Initial COVID19 Vaccinat: unvaccinated Seasonal Allergies Seasonal Allergies: No Past Medical History Surgeries: Yes (GALLBLADDER 2001; LABIAL CYST/ABSCESS I&D) Gallbladder, Tubal Ligation Respiratory: Yes Asthma Cardiac: Yes High Cholesterol Neurological: No Reproductive Disorders: No Female Reproductive Disorders: 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 0.0oz. [id number]; 33.00 BMI Method:Stated General Appearance: No Apparent Distress, WD/WN Eyes: Bilateral Eye Normal Inspection, Bilateral Eye PERRL, Bilateral Eye EOMI HEENT: PERRL/EOMI, TMs Normal, Normal ENT Inspection, Pharynx Normal Neck: Full Range of Motion, Normal Inspection, Non Tender, Supple Respiratory: Chest Non Tender, Lungs Clear, Normal Breath Sounds, No Accessory Muscle Use, No Respiratory Distress Cardiovascular: Regular Rate, Rhythm, No Edema, No Gallop Gastrointestinal: Normal Bowel Sounds, No Organomegaly, No Pulsatile Mass, Non Tender Extremity: Normal Capillary Refill, Normal Inspection Neurologic/Psychiatric: Alert, Oriented x3, No Motor/Sensory Deficits, Normal 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/Affect, 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 Norm as Tested Skin: Normal Color, Warm/Dry Progress/Results/Core Measures Suspected Sepsis SIRS Temperature: Pulse: Respiratory Rate: Laboratory Tests 09/10/21 13:36: White Blood Count 4.1L Blood Pressure / Mean: Laboratory Tests 09/10/21 13:36: Creatinine 0.59L, Platelet Count 248, Total Bilirubin 0.6 Results/Orders Lab Results Laboratory Tests Test 09/10/21 13:26 09/10/21 13:36 09/10/21 13:37 Range/Units Influenza Type A (RT-PCR) Not Detected Not Detecte Influenza Type B (RT-PCR) Not Detected Not Detecte SARS-CoV-2 RNA (RT-PCR) Not Detected Not Detecte White Blood Count 4.1 L 4.3-11.0 10^3/uL Red Blood Count 4.15 3.80-5.11 10^6/uL Hemoglobin 10.5 L 11.5-16.0 g/dL Hematocrit 33 L 35-52 % Mean Corpuscular Volume 78 L 80-99 fL Mean Corpuscular Hemoglobin 25 25-34 pg Mean Corpuscular Hemoglobin Concent 32 32-36 g/dL Red Cell Distribution Width 16.9 H 10.0-14.5 % Platelet Count 248 130-400 10^3/uL Mean Platelet Volume 9.9 9.0-12.2 fL Immature Granulocyte % (Auto) 0 % Neutrophils (%) (Auto) 61 42-75 % Lymphocytes (%) (Auto) 30 12-44 % Monocytes (%) (Auto) 8 0-12 % Eosinophils (%) (Auto) 1 0-10 % Basophils (%) (Auto) 1 0-10 % Neutrophils # (Auto) 2.5 1.8-7.8 10^3/uL Lymphocytes # (Auto) 1.2 1.0-4.0 10^3/uL Monocytes # (Auto) 0.3 0.0-1.0 10^3/uL Eosinophils # (Auto) 0.0 0.0-0.3 10^3/uL Basophils # (Auto) 0.0 0.0-0.1 10^3/uL Immature Granulocyte # (Auto) 0.0 0.0-0.1 10^3/uL Sodium Level 137 135-145 MMOL/L Potassium Level 3.9 3.6-5.0 MMOL/L Chloride Level 106 98-107 MMOL/L Carbon Dioxide Level 23 21-32 MMOL/L Anion Gap 8 5-14 MMOL/L Blood Urea Nitrogen 9 7-18 MG/DL Creatinine 0.59 L 0.60-1.30 MG/DL Estimat Glomerular Filtration Rate 119 BUN/Creatinine Ratio 15 Glucose Level 99 70-105 MG/DL Calcium Level 8.7 8.5-10.1 MG/DL Corrected Calcium 8.8 8.5-10.1 MG/DL Total Bilirubin 0.6 0.1-1.0 MG/DL Aspartate Amino Transf (AST/SGOT) 20 5-34 U/L Alanine Aminotransferase (ALT/SGPT) 20 0-55 U/L Alkaline Phosphatase 55 40-136 U/L Total Protein 7.3 6.4-8.2 GM/DL Albumin 3.9 3.2-4.5 GM/DL Urine Color YELLOW Urine Clarity CLEAR Urine pH 7.0 5-9 Urine Specific [place] 1.010 L 1.016-1.022 Urine Protein NEGATIVE NEGATIVE Urine Glucose (UA) NEGATIVE NEGATIVE Urine Ketones NEGATIVE NEGATIVE Urine Nitrite NEGATIVE NEGATIVE Urine Bilirubin NEGATIVE NEGATIVE Urine Urobilinogen 0.2 < = 1.0 MG/DL Urine Leukocyte Esterase NEGATIVE NEGATIVE Urine RBC (Auto) NEGATIVE NEGATIVE Urine RBC NONE /HPF Urine WBC RARE /HPF Urine Squamous Epithelial Cells 2-5 /HPF Urine Crystals NONE /LPF Urine Bacteria TRACE /HPF Urine Casts NONE /LPF Urine Mucus NEGATIVE /LPF Urine Culture Indicated NO My Orders Orders - CYNTHIA CHAIDEZ Covid 19 Inhouse Test (09/10/21 13:05) Influenza A And B By Pcr (09/10/21 13:05) Ua Culture If Indicated (09/10/21 13:31) Cbc With Automated Diff (09/10/21 13:31) Comprehensive Metabolic Panel (09/10/21 13:31) Vital Signs/I&O 09/10/21 13:26 Temp 37.0 Pulse 91 Resp 16 B/P (MAP) 121/75 (90) Pulse Ox 99 O2 Delivery Room Air Capillary Refill : Departure Communication (PCP) Patient's COVID influenza negative. Urinalysis negative for infection or . Lab work was otherwise unremarkable and reassuring. She has no abdominal tenderness. No chest pain, cough. She had some mild shortness of breath today. She states her main complaint is feeling weak. Her vital signs stable. No history of thyroid disease. She has no vomiting or diarrhea. Discussed importance of staying hydrated and healthy diet. Continue with conservative measures at this time. Discussed she may be developing a viral infection with early symptomology at this time. If symptoms become worse such as increasing weakness, cough, actively vomiting or diarrhea to return back to ED for further evaluation. Patient agrees with plan of action. Patient has no known medical problems. Otherwise healthy. Neuro exam unremarkable. Vital signs stable Impression Primary Impression: Weakness Disposition: 01 HOME, SELF-CARE Condition: Stable Departure-Patient Inst. Decision time for Depature: 14:21 Referrals: [facility] (PCP/Family) Primary Care Physician Patient Instructions: Weakness ED Add. Discharge Instructions: Recommend staying hydrated. Recommend healthy diet. If any worsening symptoms return back to ED for further evaluation All discharge instructions reviewed with patient and/or family. Voiced understanding. CYNTHIA CHAIDEZ Sep 10, 2021 13:35
[2021-09-10 13:42] LABS: BASOPHILS % (AUTO) 1 % (0-10); EOSINOPHILS % (AUTO) 1 % (0-10); HEMATOCRIT 33 % (35-52); HEMOGLOBIN 10.5 g/dL (11.5-16.0); LYMPHOCYTES # (AUTO) 1.2 10^3/uL (1.0-4.0); LYMPHOCYTES % (AUTO) 30 % (12-44); MEAN CORPUSCULAR HEMOGLOBIN 25 pg (25-34); MEAN CORPUSCULAR HGB CONC 32 g/dL (32-36); MEAN CORPUSCULAR VOLUME 78 fL (80-99); MEAN PLATELET VOLUME 9.9 fL (9.0-12.2); MONOCYTES # (AUTO) 0.3 10^3/uL (0.0-1.0); MONOCYTES % (AUTO) 8 % (0-12); NEUTROPHILS # (AUTO) 2.5 10^3/uL (1.8-7.8); NEUTROPHILS % (AUTO) 61 % (42-75); PLATELET COUNT 248 10^3/uL (130-400); WHITE BLOOD COUNT 4.1 10^3/uL (4.3-11.0)
[2021-09-10 13:45] LABS: BILIRUBIN,URINE NEGATIVE (NEGATIVE); CLARITY,URINE CLEAR; COLOR,URINE YELLOW; GLUCOSE, URINE (UA) NEGATIVE (NEGATIVE); KETONES,URINE NEGATIVE (NEGATIVE); LEUKOCYTE ESTERASE ,URINE NEGATIVE (NEGATIVE); NITRITE,URINE NEGATIVE (NEGATIVE); PROTEIN,URINE NEGATIVE (NEGATIVE)
[2021-09-10 13:51] LABS: BACTERIA,URINE TRACE /HPF; WBC,URINE RARE /HPF
[2021-09-10 13:54] LABS: ALBUMIN 3.9 GM/DL (3.2-4.5); POTASSIUM 3.9 MMOL/L (3.6-5.0)
[2021-09-10 13:55] LABS: CALCIUM 8.7 MG/DL (8.5-10.1)
[2021-09-10 13:57] LABS: TOTAL PROTEIN 7.3 GM/DL (6.4-8.2)
[2021-09-10 13:58] LABS: BILIRUBIN,TOTAL 0.6 MG/DL (0.1-1.0)
[2021-09-10 14:00] LABS: CREATININE SERUM 0.59 MG/DL (0.60-1.30)
== END 2021-09-10 14:15 | disposition home or self-care (01) ==
LOC: EDUNIT# 13:02 → ER 13:05
DX: R53.1 Weakness (principal); R06.02 Shortness of breath; Z20.822 Contact with and (suspected) exposure to COVID-19; Z28.310 Unvaccinated for COVID-19
CPT/HCPCS: 36415; 80053; 81000; 84703; 85025; 87636

== ENCOUNTER 2021-12-07 11:39 | Emergency (ER) | payer SELFPAY ==
[2021-12-07] MEDS ORDERED: NS IV 1000 ML 1,000 ML IV SCH (12:00)
--- NOTE | 2021-12-07 12:02 | ED Abdominal Pain ---
General Chief Complaint: Abdominal/GI Problems Stated Complaint: BACK/ABD PAIN/FEVER Nursing Triage Note: PT AMB TO RM 5 WITH C/O LOW ABD PAIN RADIATING TO BACK X1 WEEK. PAIN IS WORSENING AND PT STATES SHE HAD A FEVER LAST NIGHT Source of Information: Patient Exam Limitations: No Limitations History of Present Illness Date Seen by Provider: Dec 07, 2021 Time Seen by Provider: 11:45 Initial Comments 36-year-old female presents the emergency department today for left-sided abdominal pain that radiates into her left lower back. Symptoms started about a week ago and have been persistent. They are worse with urination. No hematuria. No vaginal symptoms. No changes in her bowels. She tells me she has had a fever to 103 when taken orally at home. She has had a tubal ligation but no other abdominal surgeries. Pain is described as sharp stabbing. Aggravated by urination, relieved slightly at rest. Does radiate to her left low back as previously described. Mild to moderate. Allergies and Home Medications Allergies Coded Allergies: morphine (Unverified Allergy, Mild, ITCHING, 10/09/08) Patient Home Medication List Home Medication List Reviewed: Yes Cephalexin (Cephalexin) 500 Mg Tablet, 500 MG PO BID Prescribed by: LUCINDA SAUL MD on 12/07/21 1322 Ondansetron (Ondansetron Odt) 8 Mg Tab.rapdis, 8 MG PO Q6H PRN for NAUSEA/VOMITING-1ST LINE Prescribed by: ALCIDES DIAZ on 11/10/16 2153 Ondansetron (Ondansetron Odt) 4 Mg Tab.rapdis, 4 MG PO Q6H PRN for NAUSEA/VOMITING-1ST LINE Prescribed by: CYNTHIA MONTEZ on 05/06/21 0316 Review of Systems Review of Systems Constitutional: fever EENTM: No Symptoms Reported Respiratory: No Symptoms Reported Cardiovascular: No Symptoms Reported Gastrointestinal: Abdominal Pain Genitourinary: No Symptoms Reported Musculoskeletal: no symptoms reported Skin: no symptoms reported Psychiatric/Neurological: No Symptoms Reported Endocrine: No Symptoms Reported Hematologic/Lymphatic: No Symptoms Reported Past Gkwfa[place]-Whpnyb-Hcocul Hx Patient Social History Tobacco Use?: No Substance use?: No Alcohol Use?: No Immunizations Up To Date Tetanus Booster (TDap): Unknown First/Initial COVID19 Vaccinat: unvaccinated Second COVID19 Vaccination Herve: unvaccinated Third COVID19 Vaccination Date: unvaccinated Seasonal Allergies Seasonal Allergies: No Past Medical History Surgery/Hospitalization HX: cholecystectomy, hysterectomy Surgeries: Yes (GALLBLADDER 2001; LABIAL CYST/ABSCESS I&D) Gallbladder, Tubal Ligation Respiratory: Yes Asthma Cardiac: Yes High Cholesterol Neurological: No Last Menstrual Period: Nov 23, 2021 Reproductive Disorders: No 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 0.0oz. 79.616941lv; 36.00 BMI Method:Stated General Appearance: WD/WN, no apparent distress HEENT: PERRL/EOMI, normal ENT inspection, TMs normal, pharynx normal Neck: non-tender, full range of motion, supple, normal inspection Respiratory: chest non-tender, lungs clear, normal breath sounds, no respiratory distress, no accessory muscle use Cardiovascular: no edema, no gallop, no JVD, no murmur, tachycardia Gastrointestinal: normal bowel sounds, soft, no organomegaly, no pulsatile mass, tenderness (Tenderness palpation left lower abdomen more diffusely across her lower abdomen bilaterally. Voluntary guarding without any rebound tenderness. Overall abdominal exam is nonsurgical.) Extremities: normal range of motion, non-tender, normal inspection, no pedal edema, no calf tenderness Back: normal inspection, no CVA tenderness, no vertebral tenderness Neurologic/Psychiatric: alert, oriented x 3 Skin: normal color, warm/dry Focused Exam Lactate Level 12/07/21 12:00: Lactic Acid Level 0.79 Lactic Acid Level Laboratory Tests Test 12/07/21 12:00 Lactic Acid Level 0.79 MMOL/L (0.50-2.00) Progress/Results/Core Measures Results/Orders Lab Results Laboratory Tests Test 12/07/21 12:00 12/07/21 13:00 Range/Units White Blood Count 9.0 4.3-11.0 10^3/uL Red Blood Count 4.18 3.80-5.11 10^6/uL Hemoglobin 11.4 L 11.5-16.0 g/dL Hematocrit 34 L 35-52 % Mean Corpuscular Volume 82 80-99 fL Mean Corpuscular Hemoglobin 27 25-34 pg Mean Corpuscular Hemoglobin Concent 33 32-36 g/dL Red Cell Distribution Width 14.6 H 10.0-14.5 % Platelet Count 225 130-400 10^3/uL Mean Platelet Volume 10.5 9.0-12.2 fL Immature Granulocyte % (Auto) 0 % Neutrophils (%) (Auto) 83 H 42-75 % Lymphocytes (%) (Auto) 8 L 12-44 % Monocytes (%) (Auto) 8 0-12 % Eosinophils (%) (Auto) 0 0-10 % Basophils (%) (Auto) 0 0-10 % Neutrophils # (Auto) 7.5 1.8-7.8 10^3/uL Lymphocytes # (Auto) 0.7 L 1.0-4.0 10^3/uL Monocytes # (Auto) 0.7 0.0-1.0 10^3/uL Eosinophils # (Auto) 0.0 0.0-0.3 10^3/uL Basophils # (Auto) 0.0 0.0-0.1 10^3/uL Immature Granulocyte # (Auto) 0.0 0.0-0.1 10^3/uL Sodium Level 138 135-145 MMOL/L Potassium Level 3.7 3.6-5.0 MMOL/L Chloride Level 104 98-107 MMOL/L Carbon Dioxide Level 20 L 21-32 MMOL/L Anion Gap 14 5-14 MMOL/L Blood Urea Nitrogen 8 7-18 MG/DL Creatinine 0.63 0.60-1.30 MG/DL Estimat Glomerular Filtration Rate 117 BUN/Creatinine Ratio 13 Glucose Level 122 H 70-105 MG/DL Lactic Acid Level 0.79 0.50-2.00 MMOL/L Calcium Level 9.0 8.5-10.1 MG/DL Corrected Calcium 9.0 8.5-10.1 MG/DL Total Bilirubin 1.0 0.1-1.0 MG/DL Aspartate Amino Transf (AST/SGOT) 36 H 5-34 U/L Alanine Aminotransferase (ALT/SGPT) 43 0-55 U/L Alkaline Phosphatase 77 40-136 U/L Total Protein 7.5 6.4-8.2 GM/DL Albumin 4.0 3.2-4.5 GM/DL Urine Color YELLOW Urine Clarity SL CLOUDY Urine pH 8.0 5-9 Urine Specific [place] 1.020 1.016-1.022 Urine Protein TRACE H NEGATIVE Urine Glucose (UA) NEGATIVE NEGATIVE Urine Ketones NEGATIVE NEGATIVE Urine Nitrite POSITIVE H NEGATIVE Urine Bilirubin NEGATIVE NEGATIVE Urine Urobilinogen 1.0 < = 1.0 MG/DL Urine Leukocyte Esterase 2+ H NEGATIVE Urine RBC (Auto) TRACE-I H NEGATIVE Urine RBC 0-2 /HPF Urine WBC 25-50 H /HPF Urine Squamous Epithelial Cells 5-10 /HPF Urine Crystals NONE /LPF Urine Bacteria LARGE H /HPF Urine Casts NONE /LPF Urine Mucus NEGATIVE /LPF Urine Culture Indicated YES My Orders Orders - LUCINDA SAUL DO Cbc With Automated Diff (12/07/21 11:56) Comprehensive Metabolic Panel (12/07/21 11:56) Blood Culture (12/07/21 11:56) Urinalysis (12/07/21 11:56) Urine Culture (12/07/21 11:56) Ed Iv/Invasive Line Start (12/07/21 11:56) Vital Signs Adult Sepsis Patie Q15M (12/07/21 11:56) Lactic Acid Analyzer (12/07/21 11:56) Ns Iv 1000 Ml (Sodium Chloride 0.9%) (12/07/21 12:00) Acetaminophen Tablet (Tylenol Tablet) (12/07/21 13:15) Medications Given in ED Current Medications Medications Dose Ordered Sig/See Route Start Time Stop Time Status Last Admin Dose Admin Acetaminophen 1,000 mg ONCE ONCE PO 12/07/21 13:15 12/07/21 13:16 DC 12/07/21 13:14 500 MG Vital Signs/I&O 12/07/21 12/07/21 11:48 13:34 Temp 37.0 Pulse 133 103 Resp 20 20 B/P (MAP) 114/76 (89) 98/69 Pulse Ox 98 O2 Delivery Room Air Blood Pressure Mean: 89 Departure Communication (Admissions) Patient has urinary tract infection which is certainly consistent with her symptoms. Prescribed antibiotics and discharged in otherwise stable condition. Impression Primary Impression: UTI (urinary tract infection) Qualified Codes: N30.01 - Acute cystitis with hematuria Disposition: HOME, SELF-CARE Condition: Stable Departure-Patient Inst. Referrals: [facility] (PCP/Family) Primary Care Physician Add. Discharge Instructions: Take antibiotics as prescribed until they are gone. Increase your fluids at home and rest. Return to the emergency department for any severe concerns. Follow-up with your primary doctor in 48 hours should your symptoms persist All discharge instructions reviewed with patient and/or family. Voiced understanding. Scripts Cephalexin (Cephalexin) 500 Mg Tablet 500 MG PO BID for 7 Days, #14 TAB Prov: LUCINDA SAUL DO 12/07/21 LUCINDA SAUL DO Dec 07, 2021 12:02
[2021-12-07 12:14] LABS: BASOPHILS % (AUTO) 0 % (0-10); EOSINOPHILS % (AUTO) 0 % (0-10); HEMATOCRIT 34 % (35-52); HEMOGLOBIN 11.4 g/dL (11.5-16.0); LYMPHOCYTES # (AUTO) 0.7 10^3/uL (1.0-4.0); LYMPHOCYTES % (AUTO) 8 % (12-44); MEAN CORPUSCULAR HEMOGLOBIN 27 pg (25-34); MEAN CORPUSCULAR HGB CONC 33 g/dL (32-36); MEAN CORPUSCULAR VOLUME 82 fL (80-99); MEAN PLATELET VOLUME 10.5 fL (9.0-12.2); MONOCYTES # (AUTO) 0.7 10^3/uL (0.0-1.0); MONOCYTES % (AUTO) 8 % (0-12); NEUTROPHILS # (AUTO) 7.5 10^3/uL (1.8-7.8); NEUTROPHILS % (AUTO) 83 % (42-75); PLATELET COUNT 225 10^3/uL (130-400)
[2021-12-07 12:21] LABS: POTASSIUM 3.7 MMOL/L (3.6-5.0)
[2021-12-07 12:24] LABS: TOTAL PROTEIN 7.5 GM/DL (6.4-8.2)
[2021-12-07 12:27] LABS: CREATININE SERUM 0.63 MG/DL (0.60-1.30)
[2021-12-07] MEDS: ACETAMINOPHEN 500 MG TAB (TYLENOL) PO ONE ×2 (13:10→13:14)
[2021-12-07 13:11] LABS: BILIRUBIN,URINE NEGATIVE (NEGATIVE); CLARITY,URINE SL CLOUDY; COLOR,URINE YELLOW; GLUCOSE, URINE (UA) NEGATIVE (NEGATIVE); KETONES,URINE NEGATIVE (NEGATIVE); LEUKOCYTE ESTERASE ,URINE 2+ (NEGATIVE); NITRITE,URINE POSITIVE (NEGATIVE); PROTEIN,URINE TRACE (NEGATIVE)
[2021-12-07 13:18] LABS: BACTERIA,URINE LARGE /HPF; RBC,URINE 0-2 /HPF; WBC,URINE 25-50 /HPF
[2021-12-07] MEDS ORDERED: CEPH500T PO (13:22)
[2021-12-07 13:34] VITALS: BP 98/69
== END 2021-12-07 13:34 | disposition home or self-care (01) ==
LOC: EDUNIT# 11:39 → ER 11:41
DX: N39.0 Urinary tract infection, site not specified (principal); Z90.49 Acquired absence of other specified parts of digestive tract; Z28.310 Unvaccinated for COVID-19
CPT/HCPCS: 36415; 80053; 81000; 83605; 85025; 87040; 87088

== ENCOUNTER 2022-12-23 19:41 | Emergency (ER) | payer BC, OTHER ==
[~2022-12-23] VITALS: Ht 154 cm; Wt 76.9 kg
[~2022-12-23 19:41] MED LIST changes: +CEPH500T PO
[2022-12-23 19:45] VITALS: BP 113/84
[2022-12-23 19:56] LABS: BILIRUBIN,URINE NEGATIVE (NEGATIVE); CLARITY,URINE SL CLOUDY; COLOR,URINE YELLOW; GLUCOSE, URINE (UA) NEGATIVE (NEGATIVE); KETONES,URINE NEGATIVE (NEGATIVE); LEUKOCYTE ESTERASE ,URINE 1+ (NEGATIVE); NITRITE,URINE NEGATIVE (NEGATIVE); PROTEIN,URINE 1+ (NEGATIVE)
--- NOTE | 2022-12-23 19:58 | ED Abdominal Pain ---
General Stated Complaint: LOWER BACK/ABD PAIN Source of Information: Patient Exam Limitations: No Limitations History of Present Illness Date Seen by Provider: Dec 23, 2022 Time Seen by Provider: 19:46 Initial Comments 37-year-old female presents the emergency department for low back pain. Symptoms started yesterday and she lifts heavy items at work and she thought it may be related to that. It has progressed and now being her anterior abdomen as well. It is mostly on the left side is a bit bilateral. She does have some dysuria but no hematuria. No fevers or chills. Normal bowel movements. No vaginal symptoms. She has had a tubal ligation. She denies any fevers chills nausea or vomiting. She took some Excedrin prior to arrival All other systems reviewed and negative except documented per HPI. Voice recognition software was used to help create this chart Allergies and Home Medications Allergies Coded Allergies: morphine (Unverified Allergy, Mild, ITCHING, 10/09/08) Patient Home Medication List Home Medication List Reviewed: Yes Cephalexin (Cephalexin) 500 Mg Tablet, 500 MG PO BID Prescribed by: LUCINDA SAUL MD on 12/07/21 1322 Cephalexin (Cephalexin) 500 Mg Tablet, 500 MG PO BID Prescribed by: LUCINDA SAUL MD on 12/23/22 2115 Last Action: New Order Ondansetron (Ondansetron Odt) 8 Mg Tab.rapdis, 8 MG PO Q6H PRN for NAUSEA/VOMITING-1ST LINE Prescribed by: ALCIDES DIAZ on 11/10/16 215 Ondansetron (Ondansetron Odt) 4 Mg Tab.rapdis, 4 MG PO Q6H PRN for NAUSEA/VOMITING-1ST LINE Prescribed by: CYNTHIA MONTEZ on 05/06/21 0316 Review of Systems Review of Systems Constitutional: see HPI Past Epmlmtd-Hturul-Ludfuc Hx Patient Social History Tobacco Use?: No Use of E-Cig and/or Vaping dev: No Substance use?: No Alcohol Use?: No Immunizations Up To Date Tetanus Booster (TDap): Unknown First/Initial COVID19 Vaccinat: unvaccinated Second COVID19 Vaccination Herve: unvaccinated Third COVID19 Vaccination Date: unvaccinated Seasonal Allergies Seasonal Allergies: No Past Medical History Surgery/Hospitalization HX: cholecystectomy, hysterectomy Surgeries: Yes (GALLBLADDER 2001; LABIAL CYST/ABSCESS I&D) Gallbladder, Tubal Ligation Respiratory: Yes Asthma Cardiac: Yes High Cholesterol Neurological: No Reproductive Disorders: No Female Reproductive Disorders: Denies 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 0.0oz. 79.299528xd; 36.00 BMI Method:Stated General Appearance: WD/WN, mild distress (Appears to be in pain) HEENT: normal ENT inspection, pharynx normal Respiratory: chest non-tender, lungs clear, normal breath sounds, no respiratory distress, no accessory muscle use Cardiovascular: regular rate, rhythm, no murmur Gastrointestinal: soft, other (Mild tenderness in bilateral lower abdomen is without rebound or guarding. No mass organomegaly. No skin changes.) Extremities: normal range of motion, non-tender, normal inspection, no pedal edema Back: CVA tenderness (R), CVA tenderness (L) (Left greater than right CVA tenderness) Neurologic/Psychiatric: alert, oriented x 3 Skin: normal color, warm/dry Progress/Results/Core Measures Results/Orders Lab Results Laboratory Tests Test 12/23/22 19:45 12/23/22 20:25 Range/Units Urine Color YELLOW Urine Clarity SL CLOUDY Urine pH 6.0 5-9 Urine Specific [place] >=1.030 1.016-1.022 Urine Protein 1+ H NEGATIVE Urine Glucose (UA) NEGATIVE NEGATIVE Urine Ketones NEGATIVE NEGATIVE Urine Nitrite NEGATIVE NEGATIVE Urine Bilirubin NEGATIVE NEGATIVE Urine Urobilinogen 0.2 < = 1.0 MG/DL Urine Leukocyte Esterase 1+ H NEGATIVE Urine RBC (Auto) 1+ H NEGATIVE Urine RBC 25-50 H /HPF Urine WBC 10-25 H /HPF Urine Squamous Epithelial Cells 10-25 H /HPF Urine Crystals NONE /LPF Urine Bacteria MODERATE H /HPF Urine Casts NONE /LPF Urine Mucus MODERATE H /LPF Urine Culture Indicated YES White Blood Count 7.6 4.3-11.0 10^3/uL Red Blood Count 4.25 3.80-5.11 10^6/uL Hemoglobin 11.3 L 11.5-16.0 g/dL Hematocrit 35 35-52 % Mean Corpuscular Volume 81 80-99 fL Mean Corpuscular Hemoglobin 27 25-34 pg Mean Corpuscular Hemoglobin Concent 33 32-36 g/dL Red Cell Distribution Width 15.9 H 10.0-14.5 % Platelet Count 241 130-400 10^3/uL Mean Platelet Volume 10.1 9.0-12.2 fL Immature Granulocyte % (Auto) 0 % Neutrophils (%) (Auto) 73 42-75 % Lymphocytes (%) (Auto) 20 12-44 % Monocytes (%) (Auto) 5 0-12 % Eosinophils (%) (Auto) 1 0-10 % Basophils (%) (Auto) 0 0-10 % Neutrophils # (Auto) 5.6 1.8-7.8 10^3/uL Lymphocytes # (Auto) 1.5 1.0-4.0 10^3/uL Monocytes # (Auto) 0.4 0.0-1.0 10^3/uL Eosinophils # (Auto) 0.1 0.0-0.3 10^3/uL Basophils # (Auto) 0.0 0.0-0.1 10^3/uL Immature Granulocyte # (Auto) 0.0 0.0-0.1 10^3/uL Sodium Level 137 135-145 MMOL/L Potassium Level 3.4 L 3.6-5.0 MMOL/L Chloride Level 103 98-107 MMOL/L Carbon Dioxide Level 22 21-32 MMOL/L Anion Gap 12 5-14 MMOL/L Blood Urea Nitrogen 10 7-18 MG/DL Creatinine 0.52 L 0.60-1.30 MG/DL Estimat Glomerular Filtration Rate 122 BUN/Creatinine Ratio 19 Glucose Level 138 H 70-105 MG/DL Calcium Level 9.0 8.5-10.1 MG/DL Corrected Calcium 9.0 8.5-10.1 MG/DL Total Bilirubin 0.3 0.1-1.0 MG/DL Aspartate Amino Transf (AST/SGOT) 18 5-34 U/L Alanine Aminotransferase (ALT/SGPT) 25 0-55 U/L Alkaline Phosphatase 70 40-136 U/L Total Protein 7.3 6.4-8.2 GM/DL Albumin 4.0 3.2-4.5 GM/DL My Orders Orders - LUCINDA SAUL DO Cbc And Automated Diff (12/23/22 19:52) Comprehensive Metabolic Panel (12/23/22 19:52) Ua Culture If Indicated (12/23/22 19:52) Ct Abd/Pelvis Wo(Kidney Stone) (12/23/22 19:52) Ed Iv/Invasive Line Start (12/23/22 19:52) Ns Iv 1000 Ml (Ns Iv 1000 Ml) (12/23/22 20:00) Ketorolac Injection (Ketorolac Injection (12/23/22 20:00) Urine Culture (12/23/22 19:45) Cephalexin Capsule (Cephalexin Capsule) (12/23/22 20:58) Medications Given in ED Current Medications Medications Dose Ordered Sig/See Route Start Time Stop Time Status Last Admin Dose Admin Ketorolac Tromethamine 15 mg ONCE ONCE IVP 12/23/22 20:00 12/23/22 20:01 DC 12/23/22 21:04 15 MG Vital Signs/I&O 12/23/22 19:45 Temp 36.7 Pulse 103 Resp 16 B/P (MAP) 113/84 (94) Pulse Ox 99 O2 Delivery Room Air Departure Communication (Admissions) CT scan negative. I have independently reviewed the images. Labs negative, reassuring. UA + for UTI which is likely causing her symptoms. She is given IVF, toradol, and PO keflex. Feeling better . Discharged in stable conditions. Impression Primary Impression: UTI (urinary tract infection) Qualified Codes: N30.00 - Acute cystitis without hematuria Disposition: HOME, SELF-CARE Condition: Stable Departure-Patient Inst. Referrals: [facility] (PCP/Family) Primary Care Physician Patient Instructions: Urinary Tract Infection, Adult (DC) Add. Discharge Instructions: You are seen in the emergency department today for abdominal pain. Your CT scan is normal. You do have a urinary tract infection. Please take antibiotics as prescribed until they are gone. Increase your fluids at home and rest. Use ibuprofen and Tylenol as needed for pain. Return to the emergency department for any severe concerns. Scripts Cephalexin (Cephalexin) 500 Mg Tablet 500 MG PO BID for 5 Days, #10 TAB Prov: LUCINDA SAUL DO 12/23/22 LUCINDA SAUL DO Dec 23, 2022 19:58
[2022-12-23] MEDS ORDERED: NS IV 1000 ML 1,000 ML IV SCH (20:00)
[2022-12-23] MEDS ORDERED: KETOROLAC INJ 15 MG/ML VIAL IVP ONE (20:00)
[2022-12-23 20:02] LABS: BACTERIA,URINE MODERATE /HPF; RBC,URINE 25-50 /HPF
--- NOTE | 2022-12-23 20:28 | Diagnostic Imaging Report ---
Clinical indication: Patient with right-sided flank and abdominal pain. Exam: CT exam of the abdomen and pelvis is performed without IV or oral contrast using stone protocol. Coronal and sagittal reformatted images were created. Auto Exposure Controls were utilized during the CT exam to meet ALARA standards for radiation dose reduction. Comparisons: CT scan of the abdomen and pelvis without contrast dated 10/02/2020. Findings: Visualized lung bases: Unremarkable. Liver: Unremarkable as visualized. Gallbladder: Surgically absent. Pancreas: Unremarkable as visualized. Spleen: Unremarkable as visualized. Adrenal glands: Unremarkable. Kidneys/ ureters: Unremarkable as visualized. Aorta: Unremarkable as visualized. Intraabdominal/ retroperitoneal contents: Unremarkable. Intestines: The stomach is significantly distended with ingested material. Appendix: Unremarkable. Bladder: The bladder is decompressed and unremarkable as visualized. Pelvic organs: Uterus and adnexal structures are unremarkable. Extra abdominal/ pelvis regions: Unremarkable. Abdominal wall: Unremarkable. Bones: There are small degenerative spurs involving the visualized lower thoracic spine and lumbar spine. Impression: 1: There is no CT evidence of acute abdominal or pelvic process. There are no urinary tract stones. The appendix is unremarkable. 2: The gallbladder surgically absent. Dictated by: Dictated on workstation # [id number]
[2022-12-23 20:37] LABS: BASOPHILS % (AUTO) 0 % (0-10); EOSINOPHILS # (AUTO) 0.1 10^3/uL (0.0-0.3); EOSINOPHILS % (AUTO) 1 % (0-10); HEMATOCRIT 35 % (35-52); HEMOGLOBIN 11.3 g/dL (11.5-16.0); LYMPHOCYTES # (AUTO) 1.5 10^3/uL (1.0-4.0); LYMPHOCYTES % (AUTO) 20 % (12-44); MEAN CORPUSCULAR HEMOGLOBIN 27 pg (25-34); MEAN CORPUSCULAR HGB CONC 33 g/dL (32-36); MEAN CORPUSCULAR VOLUME 81 fL (80-99); MEAN PLATELET VOLUME 10.1 fL (9.0-12.2); MONOCYTES # (AUTO) 0.4 10^3/uL (0.0-1.0); MONOCYTES % (AUTO) 5 % (0-12); NEUTROPHILS # (AUTO) 5.6 10^3/uL (1.8-7.8); NEUTROPHILS % (AUTO) 73 % (42-75); PLATELET COUNT 241 10^3/uL (130-400); WHITE BLOOD COUNT 7.6 10^3/uL (4.3-11.0)
[2022-12-23 20:58] LABS: CREATININE SERUM 0.52 MG/DL (0.60-1.30); POTASSIUM 3.4 MMOL/L (3.6-5.0)
[2022-12-23] MEDS ORDERED: CEPHALEXIN 250 MG CAPSULE PO STA (20:58)
[2022-12-23 20:59] LABS: BILIRUBIN,TOTAL 0.3 MG/DL (0.1-1.0); TOTAL PROTEIN 7.3 GM/DL (6.4-8.2)
[2022-12-23] MEDS ORDERED: CEPH500T PO (21:15)
== END 2022-12-23 21:15 | disposition home or self-care (01) ==
LOC: EDUNIT# 19:41 → ER FS 19:43
DX: N39.0 Urinary tract infection, site not specified (principal); M54.50 Low back pain, unspecified; Z28.310 Unvaccinated for COVID-19; X50.0XXA Overexertion from strenuous movement or load, initial encounter; Y99.0 Civilian activity done for income or pay
CPT/HCPCS: 36415; 74176; 80053; 81000; 85025; 87077; 87088